=== PATIENT | male | born 1945 | race Hispanic/Latino ===

== ENCOUNTER 2017-07-05 18:47 | Emergency (ER) | payer MEDICARE, OTHER ==
[2017-07-05] MEDS ORDERED: Acetaminophen 650 MG/20.3 ML UDCUP ONE (20:55)
--- NOTE | 2017-07-05 21:50 | CT ---
CT BRAIN NONCONTRAST: 07/05/17 HISTORY: 72-year-old male status post acute head trauma from fall. FINDINGS: There is no midline shift or any other mass effect. There is no evidence of acute intracranial hemo rrhage, large cortical infarct, obstructive hydrocephalus, or extraaxial fluid collection. The calv arium is intact. IMPRESSION: No acute intracranial findings. sruthi [] POS: [facility]
--- NOTE | 2017-07-05 21:54 | CT ---
CT MAXILLOFACIAL NONCONTRAST: 07/05/17 HISTORY: 72-year-old male status post acute facial trauma due to fall. FINDINGS: There is soft tissue swelling of the lips, right side greater than left. No fracture identified invo lving the mandible, maxilla, or any of the other facial bones. No dislocation of the TMJs. The paran phoebe sinuses are clear. No intraorbital gas, hematoma or edema. IMPRESSION: 1. No fracture. 2. Acute, traumatic, soft tissue contusion of the lips. POS: [facility]
[2017-07-05] MEDS ORDERED: Adacel (T-DAP) 0.5 ML VIAL ONE (22:04)
[2017-07-05] MEDS ORDERED: Bacitracin Zinc 1 Packet ONE (22:46)
== END 2017-07-05 22:47 | disposition home or self-care (01) ==
LOC: ERS 18:47
DX: S01.512A Laceration without foreign body of oral cavity, initial encounter (principal); S80.211A Abrasion, right knee, initial encounter; S00.81XA Abrasion of other part of head, initial encounter; R41.3 Other amnesia; E11.9 Type 2 diabetes mellitus without complications; Z23 Encounter for immunization; Z87.891 Personal history of nicotine dependence; F32.9 Major depressive disorder, single episode, unspecified; W01.0XXA Fall on same level from slipping, tripping and stumbling without subsequent striking against object, initial encounter; Y93.02 Activity, running
CPT/HCPCS: 70450; 70486; 90471; 90715

== ENCOUNTER 2017-10-26 17:23 | Emergency (ER) | payer MEDICARE, OTHER ==
[2017-10-26 18:07] LABS: #Eosinphils 0.3 thou/uL (0.0-0.7); #Lymphocytes 1.6 thou/uL (1.20-3.40); #Monocytes 0.6 thou/uL (0.11-0.59); #Neutrophils 3.6 thou/uL (1.40-6.50); %Basophils 0.7 % (0.0-1.0); %Eosinophils 4.2 % (0.0-10.0); %Lymphocytes 25.9 % (21.0-51.0); %Monocytes 10.1 % (0.0-10.0); %Neutrophils 59.2 % (42.0-75.0); Hemoglobin 13.5 g/dL (14.0-18.0); Mean Corpuscular HGB CONC 34.6 g/dL (32.0-36.0); Mean Corpuscular Hemoglobin 30.8 pg (27.0-31.0); Mean Corpuscular Volume 89.3 fl (80.0-94.0); Platelet Count 169 thou/uL (130-400); RBC Distribution Width 11.2 % (11.5-14.5); Red Blood Cell (RBC) Count 4.39 mill/uL (4.70-6.10); White Blood Cell (WBC) Count 6.1 thou/uL (4.8-10.8)
[2017-10-26 18:12] LABS: PTT 28.6 SEC (22.9-36.1)
[2017-10-26 18:22] LABS: CKMB 1.5 ng/mL (0-6.6); Troponin I Less than 0.010 ng/mL (< 0.028)
[2017-10-26 18:25] LABS: ALT (SGPT) 23 U/L (8-55); AST (SGOT) 21 U/L (5-34); Albumin 3.9 g/dL (3.4-4.8); Alkaline Phosphatase 64 U/L (40-150); Anion Gap 19 mmol/L (10-20); BUN (Urea Nitrogen) 11 mg/dL (8.4-25.7); Bilirubin, Total 0.5 mg/dL (0.2-1.2); CK (CPK) 97 U/L (30-200); Calc. Creatinine Clearance 0 mL/min (70-130); Calcium 9.3 mg/dL (7.8-10.44); Carbon Dioxide 19 mmol/L (23-31); Chloride 96 mmol/L (98-107); Estimated GFR-MDRD Greater than 90; Globulin 2.6 g/dL (2.4-3.5); Glucose 97 mg/dL (83-110); Potassium 4.8 mmol/L (3.5-5.1); Protein, Total 6.5 g/dL (5.8-8.1); Sodium 129 mmol/L (136-145)
== END 2017-10-26 19:05 | disposition home or self-care (01) ==
LOC: SCSER 17:23
DX: E87.1 Hypo-osmolality and hyponatremia (principal); E86.0 Dehydration; R21 Rash and other nonspecific skin eruption; E11.9 Type 2 diabetes mellitus without complications; F32.9 Major depressive disorder, single episode, unspecified; Z87.891 Personal history of nicotine dependence; Z79.02 Long term (current) use of antithrombotics/antiplatelets; Z79.899 Other long term (current) drug therapy; Z79.84 Long term (current) use of oral hypoglycemic drugs
CPT/HCPCS: 80053; 82550; 82553; 84484; 85025; 85610; 85730; 93005; 94760; 96360

== ENCOUNTER 2017-11-07 07:30 | Outpatient (CLI) | payer MEDICARE, OTHER ==
--- NOTE | 2017-11-07 09:09 | CT ---
CONTRAST ENHANCED CT CHEST: DATE: 11/07/17. COMPARISON: Comparison is made to previous exam from 10/22/17. FINDINGS: Contrast-enhanced CT of the chest is obtained. The mediastinum is unremarkable. The patient has had a sternotomy with coronary artery bypass graft changes. Calcifications of the coronary artery are seen. No evidence of mediastinal abnormality is seen. Adrenal glands unremarkable. Visualized portions of the liver and spleen are unremarkable. The pancreas is unremarkable. Some diffuse interstitial changes seen in both lungs. Findings compatible with some chronic fibrotic changes. No other significant evidence of lung parenchymal lesion seen. IMPRESSION: 1. Some chronic fibrotic changes seen in the lungs. 2. No definite evidence of mediastinal abnormality seen. POS: [facility]
[2017-11-07] MEDS ORDERED: Iopamidol 370 76% 100 ML VIAL ONE (17:03)
== END 2017-11-07 07:31 | disposition home or self-care (01) ==
LOC: CT 07:30
PROVIDERS: ATTEND Family Medicine
DX: R91.8 Other nonspecific abnormal finding of lung field (principal)
CPT/HCPCS: 71260

== ENCOUNTER 2017-12-11 08:38 | Outpatient (CLI) | payer MEDICARE, OTHER ==
--- NOTE | 2017-12-11 15:56 | NM ---
NUCLEAR MEDICINE BRAIN IMAGING: INDICATIONS: Parkinson disease. FINDINGS: There is decreased uptake within the lentiform nuclei bilaterally, at the posterior aspect. IMPRESSION: Abnormal nuclear medicine brain perfusion imaging with decreased uptake at the posterior aspect of ea ch lentiform nucleus. POS: [facility]
== END 2017-12-11 08:39 | disposition home or self-care (01) ==
LOC: NM 08:38
PROVIDERS: ATTEND Psychiatry & Neurology Neurology
DX: G20 Parkinson's disease (principal); R94.02 Abnormal brain scan
CPT/HCPCS: 78607; A9584

== ENCOUNTER 2018-10-06 16:43 | Emergency (ER) | payer MEDICARE, OTHER ==
[2018-10-06] MEDS ORDERED: HYDROcodone/Acetaminophen 5/325 mg Tablet ONE (17:51)
--- NOTE | 2018-10-06 17:52 | RAD ---
RADIOGRAPH RIGHT SHOULDER THREE VIEWS: HISTORY: A 73-year-old male with nontraumatic right shoulder pain. FINDINGS: No fracture or dislocation. Mild to moderate DJD at the AC joint and glenohumeral joint. Tiny soft tissue calcification close to the greater tuberosity on one of the views. IMPRESSION: 1. No fracture. 2. Mild to moderate osteoarthrosis. 3. 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 POS: [facility]
== END 2018-10-06 17:54 | disposition home or self-care (01) ==
LOC: SCSER 16:43
DX: S46.911A Strain of unspecified muscle, fascia and tendon at shoulder and upper arm level, right arm, initial encounter (principal); E11.9 Type 2 diabetes mellitus without complications; F32.9 Major depressive disorder, single episode, unspecified; Z87.891 Personal history of nicotine dependence; Y04.0XXA Assault by unarmed brawl or fight, initial encounter; Y93.71 Activity, boxing

== ENCOUNTER 2018-10-17 09:07 | Outpatient (CLI) | payer MEDICARE, OTHER ==
--- NOTE | 2018-10-17 10:29 | RAD ---
TWO VIEW CHEST: COMPARISON: 07/27/2011. INDICATION: Pneumonitis. FINDINGS: Thee is interstitial prominence of each lung. Postoperative findings of the chest are again seen. T here is no lobar consolidation, effusion, or pneumothorax. Patchy bibasilar densities may relate to fibrosis and/or atelectasis/scar. The chest is otherwise similar appearing. IMPRESSION: 1. No focal consolidation. 2. Bibasilar interstitial prominence. 3. Incidental note of air-filled mildly distended bowel, incompletely evaluated. Correlate clinical ly. If there are symptoms of abdominal pain or other acute findings, recommend dedicated imaging fol low for further evaluation. POS: [facility]
== END 2018-10-17 09:08 | disposition home or self-care (01) ==
LOC: BICRAD 09:07
PROVIDERS: ATTEND Family Medicine
DX: J18.9 Pneumonia, unspecified organism (principal)
CPT/HCPCS: 71046

== ENCOUNTER 2019-04-15 11:53 | Emergency (ER) | payer MEDICARE, OTHER ==
--- NOTE | 2019-04-15 12:27 | CT ---
Head CT without contrast 04/15/2019: COMPARISON: 07/05/2017 HISTORY: Trauma TECHNIQUE: Axial CT imaging at 5 mm intervals from vertex through skull base without contrast FINDINGS: The imaged paranasal sinuses and mastoid air cells are well aerated. There is no displaced calvarial fracture. There is atherosclerotic calcification of the cavernous carotid arteries and the distal vertebral arteries. Mild periventricular hypodensity noted suggesting small vessel disease. No intracranial hemorrhage, m idline shift, mass effect, or ventricular enlargement. IMPRESSION: No displaced fracture or intracranial hemorrhage.
[2019-04-15] MEDS ORDERED: Acetaminophen 500 MG TAB ONE (12:42)
== END 2019-04-15 13:44 | disposition home or self-care (01) ==
LOC: ERS 11:53
DX: S00.03XA Contusion of scalp, initial encounter (principal); E11.9 Type 2 diabetes mellitus without complications; F32.9 Major depressive disorder, single episode, unspecified; Z79.899 Other long term (current) drug therapy; Z79.84 Long term (current) use of oral hypoglycemic drugs; W18.09XA Striking against other object with subsequent fall, initial encounter
CPT/HCPCS: 70450

== ENCOUNTER 2019-04-16 12:12 | Outpatient (CLI) | payer MEDICARE, OTHER ==
[2019-04-16 14:59] LABS: #Eosinphils 0.3 thou/uL (0.0-0.7); #Lymphocytes 1.6 thou/uL (1.20-3.40); #Monocytes 0.5 thou/uL (0.11-0.59); #Neutrophils 5.5 thou/uL (1.40-6.50); %Basophils 0.2 % (0.0-1.0); %Eosinophils 3.7 % (0.0-10.0); %Lymphocytes 20.5 % (21.0-51.0); %Monocytes 6.5 % (0.0-10.0); %Neutrophils 69.1 % (42.0-75.0); Hemoglobin 14.5 g/dL (14.0-18.0); Mean Corpuscular HGB CONC 34.6 g/dL (32.0-36.0); Mean Corpuscular Hemoglobin 32.4 pg (27.0-31.0); Mean Corpuscular Volume 93.8 fL (78.0-98.0); Mean Platelet Volume 7.1 fL (7.4-10.4); Platelet Count 277 thou/uL (130-400); RBC Distribution Width 12.2 % (11.5-14.5); Red Blood Cell (RBC) Count 4.46 mill/uL (4.70-6.10); White Blood Cell (WBC) Count 7.9 thou/uL (4.8-10.8)
[2019-04-16 15:04] LABS: Prothrombin Time 13.2 SEC (12.0-14.7)
[2019-04-16 15:18] LABS: Anion Gap 18 mmol/L (10-20); BUN (Urea Nitrogen) 8 mg/dL (8.4-25.7); Calc. Creatinine Clearance 0 mL/min (70-130); Calcium 9.8 mg/dL (7.8-10.44); Carbon Dioxide 22 mmol/L (23-31); Chloride 94 mmol/L (98-107); Estimated GFR-MDRD Greater than 90; Glucose 119 mg/dL (83-110); Sodium 130 mmol/L (136-145)
[2019-04-16 15:25] LABS: Bacteria/HPF None Seen HPF (None Seen); Bilirubin Negative (Negative); Blood, Urine Negative (Negative); Calcium Oxalate Crystals 2+ HPF (None Seen); Clarity Clear (Clear); Glucose, Urine (Dipstick) 300 mg/dL (Negative); Leukocyte Negative Leu/uL (Negative); Mucous/LPF 1+ LPF (<2+); Nitrite Negative (Negative); Protein, Urine (Dipstick) 20 mg/dL (Neg-Trace); RBC/HPF 0-3 HPF (0-3); Squamous Epithelial None Seen HPF (0-3); Urobilinogen Normal mg/dL (Less than 2); WBC/HPF 0-3 HPF (0-3)
== END 2019-04-16 12:13 | disposition home or self-care (01) ==
LOC: LABBT 12:12
PROVIDERS: ATTEND Orthopaedic Surgery
DX: Z01.818 Encounter for other preprocedural examination (principal); M17.11 Unilateral primary osteoarthritis, right knee
CPT/HCPCS: 80048; 81001; 85025; 85610; 87081; 93005; 93010

== ENCOUNTER 2019-04-27 06:49 | Inpatient (IN) | payer MEDICARE, OTHER ==
[2019-04-16 13:12] VITALS: BMI 24.4
--- NOTE | 2019-04-23 08:53 | HP ---
HISTORY OF PRESENT ILLNESS: The patient is a 73-year-old male with a long history of progressive degenerative arthritis of both knees, right symptomatic more than left, unresponsive to conservative treatment including rest, restriction of activities, and lifestyle adjustments, and previous cortisone injections. The pain is now interfering with day-to-day activities including walking, getting dressed, and sleeping. PAST MEDICAL HISTORY: The patient has had previous open heart surgery and is on Plavix. He also has Parkinson disease and type 2 diabetes. PAST SURGICAL HISTORY: He has had a hemicolectomy for diverticular bleeding. CURRENT MEDICATIONS: Include; 1. Metformin. 2. Mirabegron. 3. Multivitamins. 4. Dicyclomine. 5. Plavix. 6. Lipitor. 7. Cyproheptadine. 8. Sildenafil. 9. Tylenol Arthritis. 10. Amantadine. 11. Aricept. 12. Carbidopa. He is to stop Plavix 1 week prior to anticipated surgery. ALLERGIES: HE HAS NO KNOWN ALLERGIES. FAMILY HISTORY: Otherwise, unremarkable. SOCIAL HISTORY: Otherwise, unremarkable. REVIEW OF SYSTEMS: Otherwise, unremarkable. PHYSICAL EXAMINATION: GENERAL: Reveals a healthy male. HEENT: Unremarkable. NECK: Supple. CHEST: Clear. HEART: Regular rate and rhythm. ABDOMEN: Soft and nontender. RECTAL AND GENITAL: Deferred. EXTREMITIES: Pertinent findings related to the right knee, there is puffiness with definite effusion. There is a palpable Rawls cyst. There is mild varus deformity. There is tenderness and crepitus over the medial joint line. Range of motion is 2 to 120 degrees. There is a trace valgus laxity at 30 degrees of flexion. Neurovascular exam is intact. Pulses are 1+. DIAGNOSTIC STUDIES: X-rays of the right knee reveal [id number] collapse medially with progression from previous x-rays. There are similar findings on the left knee. IMPRESSION: 1. Degenerative arthritis of both knees, right symptomatic more than left. 2. Atherosclerotic cardiovascular disease. 3. Type 2 diabetes. 4. Parkinson disease. PLAN: Right total knee replacement. The nature of the surgery, length of recovery, and potential complications such as infection, loss of motion, incomplete relief, delayed wound healing, neurovascular injury, thromboembolic phenomena, possible transfusion, and need for revision have been discussed in detail. Job ID: [id number]
[2019-04-27] MEDS ORDERED: ceFAZolin Sodium (SDC) 2 GM/100 ML BAG ONE (07:49)
[2019-04-27] MEDS ORDERED: Sodium Chloride 0.9% 100 ML ONE (07:49)
[2019-04-27] MEDS ORDERED: Tranexamic Acid 1,000 MG/10 ML VIAL ONE ×2 (07:49→11:27)
[2019-04-27] MEDS ORDERED: Fentanyl 100 MCG/2 ML VIAL ONE ×4 (08:01→12:17)
[2019-04-27] MEDS ORDERED: Midazolam HCl 2 mg/2 ml Vial ONE (08:01)
[2019-04-27] MEDS ORDERED: Promethazine HCl 25 MG/ML VIAL IM PRN ×2 (08:29→10:05)
[2019-04-27] MEDS ORDERED: Ropivacaine HCl/PF 250 ML in Premix Bag 1 BAG NERVE BLCK SCH (08:29)
[2019-04-27] MEDS ORDERED: traMADol HCl 50 MG TAB PO PRN ×2 (08:29)
[2019-04-27] MEDS ORDERED: Ondansetron PF 4 MG/2 ML Vial IVP PRN ×2 (08:29→13:59)
[2019-04-27] MEDS ORDERED: HYDROcodone/Acetaminophen 10/325 mg Tablet PO PRN ×4 (08:29→13:59)
[2019-04-27] MEDS ORDERED: Zolpidem Tartrate 5 MG TAB PO PRN ×2 (08:29→13:59)
[2019-04-27] MEDS ORDERED: Fentanyl 100 MCG/2 ML VIAL IV PRN (08:30)
[2019-04-27] MEDS ORDERED: Promethazine HCl 25 MG/ML VIAL SLOW IVP PRN (10:05)
[2019-04-27] MEDS ORDERED: Ondansetron HCl/PF 4 MG/2 ML Vial IVP PRN (10:05)
[2019-04-27] MEDS ORDERED: Bupivacaine/Epinephrine 0.25% 30 ML VIAL ONE (10:16)
[2019-04-27] MEDS ORDERED: Tranexamic Acid 1,000 MG in Sodium Chloride 0.9% 100 ML IVPB SCH ×2 (11:30→13:59)
[2019-04-27] MEDS ORDERED: Ondansetron PF 4 MG/2 ML Vial ONE ×2 (11:35→13:35)
[2019-04-27] MEDS ORDERED: PROPOFOL 200 MG/20 ML VIAL ONE (11:35)
[2019-04-27] MEDS ORDERED: Lidocaine 1% PF 5 ML VIAL ONE (11:35)
[2019-04-27] MEDS ORDERED: Ropivacaine 0.2% HCl/PF (40 MG/20 ML VIAL) ONE (11:35)
[2019-04-27] MEDS ORDERED: Ropivacaine 0.5% HCl/PF (150 MG/30 ML VIAL) ONE (11:35)
--- NOTE | 2019-04-27 12:15 | RAD ---
Right knee 2 views: HISTORY: Recent total knee postoperative change. FINDINGS: Recent total knee arthroplasty. No dislocation or periprostatic fracture. IMPRESSION: Unremarkable recent total knee arthroplasty.
[2019-04-27] MEDS ORDERED: Labetalol HCl 100 MG/20 ML VIAL ONE (12:17)
[2019-04-27] MEDS ORDERED: Ketorolac Tromethamine 30 MG/ML VIAL ONE (12:17)
[2019-04-27] MEDS ORDERED: Promethazine HCl 25 MG/ML VIAL ONE (13:35)
[2019-04-27] MEDS ORDERED: Acetaminophen 325 MG TAB PO PRN (13:59)
[2019-04-27] MEDS ORDERED: diphenhydrAMINE 25 MG CAP PO PRN (13:59)
[2019-04-27] MEDS ORDERED: (Triamcinolone Acetonide [Triamcinolone Acetonide 0.1% Lotion] TOP PRN (13:59)
[2019-04-27] MEDS ORDERED: Fentanyl 100 MCG/2 ML VIAL SLOW IVP PRN ×2 (13:59)
[2019-04-27] MEDS ORDERED: Promethazine HCl 25 MG/ML VIAL IVPB PRN (13:59)
--- NOTE | 2019-04-27 16:14 | OP ---
DATE OF PROCEDURE: 04/27/2019 MACHINE I CUTTER: Daniela Morrison PA-C ANESTHESIA: General plus adductor canal and sciatic nerve blocks. PREOPERATIVE DIAGNOSIS: Degenerative arthritis, right knee. POSTOPERATIVE DIAGNOSIS: Degenerative arthritis, right knee. PROCEDURE PERFORMED: Right total knee replacement with computer-assisted navigation with cemented [place] Triathlon components (#3 femoral component, #3 primary tibial base plate with 13 mm CS plastic insert, and A29 all plastic patellar component). DESCRIPTION OF PROCEDURE: After satisfactory anesthesia was induced in supine position, sequential compression device was placed on the nonoperative leg throughout the procedure. The right leg was then prepped and draped in routine sterile fashion. The leg was elevated and exsanguinated with an Esmarch bandage, and the tourniquet inflated to 300 mmHg. A gently curved medial parapatellar incision was made, carried down through the subcutaneous tissues and bleeding points were controlled with Bovie cautery. Medial parapatellar arthrotomy was performed. The pelvis was cleared laterally and portion of the fat-pad were excised for exposure. There was marked degenerative arthritis of the knee, especially medially with large areas of exposed bone. Meniscal remnants and osteophytes were removed. Using the [place] Right pinless navigation system and the appropriate guides, the distal femoral and proximal tibial articular surfaces were excised with an oscillating saw to accept the trial components. It was felt that #3 femoral component and #3 tibial base plate with 13 mm CS plastic insert gave appropriate size, fit, stability, and correction of the preoperative deformity. The patellar articular surface was excised to accept an all plastic A29 patellar component. There was good range of motion and good patellar tracking. The trial components were removed. The knee was copiously irrigated with pulsatile lavage, and the bony surfaces were thoroughly cleaned and dried. The permanent components were then cemented in a single stage using one package of cement premixed with 1 g of tobramycin powder. Excess cement was removed. There was again good fit and stability of the components. The knee was copiously irrigated. The skin was then infiltrated with 30 mL of 0.25% Marcaine with epinephrine. The medial retinaculum and quadriceps mechanism was closed with interrupted #2 Vicryl and a running #2 Quill. Subcutaneous tissues were closed with running 0 Quill suture and the skin closed with 3-0 subcuticular Monoderm and SurgiSeal skin adhesive. Sterile bulky compressive dressing was applied. The tourniquet deflated after 70 minutes. The foot promptly pinked up. A sequential compression device was applied to his operated leg and he was awakened, taken to recovery in stable condition. There were no apparent intraoperative complications. ESTIMATED BLOOD LOSS: Less than 100 mL. Job ID: [id number]
[2019-04-27] MEDS: Ketorolac Tromethamine 30 MG/ML VIAL IVP SCH ×3 (17:25→17:37)
[2019-04-27] MEDS: CEFAZOLIN 2 GM, IV Admixture Fee-Chemo 1 UNITS in Sodium Chloride 0.9% 100 ML IVPB SCH ×2 (17:31→21:00)
[2019-04-27] MEDS ORDERED: hydrALAZINE 20 MG/ML VIAL SLOW IVP PRN (17:33)
[2019-04-27] MEDS: Sodium Chloride 0.9% 1,000 ML IV SCH ×2 (17:38→23:21)
--- NOTE | 2019-04-27 18:06 | CON ---
DATE OF CONSULTATION: 04/27/2019 PRIMARY CARE PROVIDER: Neri Cheung MD CHIEF COMPLAINT: Management of medical comorbidities. HISTORY OF PRESENT ILLNESS: Mr. Hayes is a pleasant 73-year-old gentleman, who was seen at [facility] on April 27, 2019. Mr. Hayes had right knee replacement earlier today. Hospitalist Service has been consulted for management of medical comorbidities. Mr. Hayes denies any chest pain or shortness of breath. He reports mild discomfort in his right lower extremity. He denies any fevers or chills. He denies any nausea or vomiting. He denies any shortness of breath. REVIEW OF SYSTEMS: All systems were reviewed and were found to be negative except for the pertinent positives and negatives described above. PAST MEDICAL HISTORY: Coronary artery disease, Parkinson disease, diabetes mellitus type 2, and diverticulitis. PAST SURGICAL HISTORY: Colectomy for diverticular disease. FAMILY HISTORY: Myocardial infarction in his father. SOCIAL HISTORY: No history of tobacco use, alcohol use, or recreational drug use. ALLERGIES: NO KNOWN DRUG ALLERGIES. HOME MEDICATIONS: 1. Acetaminophen 1000 mg every 6 hours as needed. 2. Dramamine 50 mg every 6 hours as needed. 3. Amantadine 100 mg 2 times a day. 4. Lipitor 20 mg at bedtime. 5. Sinemet 25/100 mg 2 times a day. 6. Plavix 75 mg daily. 7. Desmopressin 0.1 mg at bedtime. 8. Bentyl 10 mg 2 times a day. 9. Aricept 10 mg at bedtime. 10. Metformin 1000 mg 2 times a day. 11. Mirabegron 50 mg daily. 12. MiraLAX 17 g daily as needed. 13. Sildenafil 100 mg daily as needed. 14. Triamcinolone lotion as needed. PHYSICAL EXAMINATION: GENERAL: On examination, Mr. Hayes is awake and alert, not in acute distress. VITAL SIGNS: Blood pressure is elevated at 179/92. EYES: No scleral icterus. No conjunctival pallor. ENT: Moist mucosal membranes. No oropharyngeal erythema or exudates. NECK: Supple and nontender. Trachea is midline. RESPIRATORY: Accessory muscles of breathing are not active. Chest wall movements are symmetric bilaterally. Lungs are clear to auscultation without wheeze, rhonchi, or crepitations. CARDIOVASCULAR: S1 and S2 are heard, regular. Peripheral pulses are palpable. No carotid bruit. No pericardial rub. ABDOMEN: Soft and nontender. Bowel sounds heard. NEUROLOGIC: Cranial nerves 2 through 12 are intact. MUSCULOSKELETAL: Status post right knee surgery. SKIN: No rashes or subcutaneous nodules. LYMPHATIC: No cervical lymphadenopathy. PSYCHIATRIC: Normal mood and normal affect. The patient is oriented to person, place, and time. LABORATORY DATA: Mr. Hayes's labs and investigations were reviewed. On April 16, he had normal white count, normal hemoglobin, normal platelet count, INR 1.0, normal potassium, decreased sodium of 130, decreased carbon dioxide of 22, normal creatinine, urinalysis that was positive for trace amount of ketones. ASSESSMENT AND PLAN: Mr. Hayes is a pleasant 73-year-old gentleman, who was seen at [facility] on April 27, 2019. His problem list includes: 1. Hypertension: He currently has elevated blood pressure. We will add p.r.n. hydralazine for blood pressure spikes. 2. Dyslipidemia: Continue atorvastatin. 3. Diabetes mellitus, type 2: Start Accu-Cheks and insulin sliding scale. 4. Parkinson disease: Continue Sinemet. 5. Hyponatremia: Etiology is unclear, appears to be chronic. The patient is currently on desmopressin. He is unable to tell me the indication for desmopressin. He will be advised to follow up with his primary care provider regarding this. Many thanks for allowing me to participate in your patient's care. Please feel free to contact me with any questions or concerns. LEVEL OF RISK: Low. LEVEL OF COMPLEXITY: Low. Job ID: [id number]
[2019-04-27] MEDS: Carbidopa/Levodopa 25-100 mg Tablet PO SCH (18:11)
[2019-04-27] MEDS ORDERED: Vancomycin HCl 1 GM in Premix Bag 1 BAG IVPB SCH (20:00)
[2019-04-27] MEDS: Amantadine HCl 100 mg Capsule PO SCH (20:51)
[2019-04-27] MEDS: Senokot S 8.6-50 MG TAB PO SCH (20:51)
[2019-04-27] MEDS: metFORMIN 500 MG TAB PO SCH (20:51)
[2019-04-27] MEDS: Atorvastatin Calcium 20 MG TAB PO SCH (20:52)
[2019-04-27] MEDS: Aspirin 81 mg Enteric Coated Tablet PO SCH (20:52)
[2019-04-27] MEDS: Donepezil HCl 5 MG TAB PO SCH (20:52)
[2019-04-27] MEDS: Dicyclomine 10 MG CAP PO SCH (20:52)
[2019-04-27] MEDS ORDERED: DESMOPRESSIN ACETATE 0.1 MG PO SCH (21:00)
[2019-04-28] MEDS: Ketorolac Tromethamine 30 MG/ML VIAL IVP SCH ×6 (01:00→18:23)
[2019-04-28 04:43] LABS: Hemoglobin 12.7 g/dL (14.0-18.0); Mean Corpuscular HGB CONC 33.2 g/dL (32.0-36.0); Mean Corpuscular Hemoglobin 31.7 pg (27.0-31.0); Mean Corpuscular Volume 95.4 fL (78.0-98.0); Mean Platelet Volume 7.1 fL (7.4-10.4); Platelet Count 252 thou/uL (130-400); RBC Distribution Width 12.4 % (11.5-14.5); Red Blood Cell (RBC) Count 4.02 mill/uL (4.70-6.10); White Blood Cell (WBC) Count 10.2 thou/uL (4.8-10.8)
[2019-04-28] MEDS ORDERED: HumaLOG 300 UNITS/3 ML VIAL SC PRN (08:24)
[2019-04-28] MEDS ORDERED: Dextrose 5% in Water 1,000 ML IV PRN (08:24)
[2019-04-28] MEDS ORDERED: Dextrose 50% Abboject 50 ML SYRINGE SLOW IVP PRN (08:24)
[2019-04-28] MEDS: Carbidopa/Levodopa 25-100 mg Tablet PO SCH ×3 (08:40→18:25)
[2019-04-28] MEDS: Aspirin 81 mg Enteric Coated Tablet PO SCH ×2 (08:40→21:46)
[2019-04-28] MEDS: Amantadine HCl 100 mg Capsule PO SCH ×2 (08:40→21:46)
[2019-04-28] MEDS: Multivitamin W/ Minerals 1 TAB PO SCH (08:40)
[2019-04-28] MEDS: Senokot S 8.6-50 MG TAB PO SCH ×2 (08:40→21:46)
[2019-04-28] MEDS: metFORMIN 500 MG TAB PO SCH ×2 (08:41→21:45)
[2019-04-28] MEDS: Sodium Chloride 0.9% 1,000 ML IV SCH ×2 (12:37→20:00)
[2019-04-28] MEDS: Dicyclomine 10 MG CAP PO SCH ×2 (12:49→21:46)
--- NOTE | 2019-04-28 15:14 | PDOC.HOSPP ---
- Subjective Subjective: Pt seen for followup re: hypertension. Feels well, no complaints. - Objective Vital Signs & Weight: Vital Signs (12 hours) Temp Pulse Resp BP Pulse Ox 04/28/19 12:53 88 16 135/78 98 04/28/19 07:39 98.3 F 86 18 136/77 98 04/28/19 03:35 98.4 F 85 16 136/83 97 Weight Admit Weight 138 lb Weight 138 lb I&O: 04/27/19 04/28/19 04/29/19 06:59 06:59 06:59 Intake Total 801.0 1800 Output Total 0 800 Balance 801.0 1000 Result Diagrams: 04/28/19 04:00 Additional Labs: Accuchecks 04/28/19 04/27/19 14:39 07:45 POC Glucose 149 H 128 H Labs and MARs reviewed by me ROS - Review of Systems All systems: All other ROS were reviewed and found negative. Cardiovascular: denies: chest pain, palpitations, orthopnea, paroxysmal noc. dyspnea, edema, light headedness Gastrointestinal: denies: nausea, vomitting, abdominal pain, diarrhea, constipation, melena, hematochezia - Medication Medications: Active Medications Generic Name Dose Route Start Last Admin Trade Name Freq PRN Reason Stop Dose Admin Amantadine HCl 100 mg 04/27/19 21:00 04/28/19 08:40 Symmetrel PO 100 mg BID ERMIAS Administration Aspirin 81 mg 04/27/19 21:00 04/28/19 08:40 Ecotrin PO 81 mg BID ERMIAS Administration Atorvastatin Calcium 20 mg 04/27/19 21:00 04/27/19 20:52 Lipitor PO 20 mg HS ERMIAS Administration Carbidopa/Levodopa 1 tab 04/27/19 21:00 04/28/19 08:41 Sinemet 25-100 PO 1 tab BID ERMIAS Administration Dicyclomine HCl 10 mg 04/27/19 21:00 04/28/19 12:49 Bentyl PO 10 mg BID ERMIAS Administration Donepezil HCl 10 mg 04/27/19 21:00 04/27/19 20:52 Aricept PO 10 mg HS ERMIAS Administration Ropivacaine 250 ml/ Device 250 mls @ 0 mls/hr 04/27/19 08:29 04/28/19 12:49 NERVE BLCK 250 mls INF ERMIAS Administration As Directed Sodium Chloride 1,000 mls @ 100 mls/hr 04/27/19 13:59 04/28/19 12:37 Normal Saline 0.9% IV Not Given .Q10H ERMIAS Iron/Minerals/Multivitamins 1 tab 04/28/19 09:00 04/28/19 08:40 Theragran M PO 1 tab DAILY ERMIAS Administration Ketorolac Tromethamine 15 mg 04/27/19 12:00 04/28/19 12:53 Toradol IVP 04/29/19 06:01 15 mg Q6HR ERMIAS Administration Metformin HCl 1,000 mg 04/27/19 21:00 04/28/19 08:41 Glucophage PO 1,000 mg BID ERMIAS Administration Mirabegron 50 mg 04/28/19 09:00 04/28/19 12:49 Myrbetriq Er PO 50 mg DAILY ERMIAS Administration Senna/Docusate Sodium 2 tab 04/27/19 21:00 04/28/19 08:40 Senokot S PO 2 tab BID ERMIAS Administration Sodium Chloride 10 ml 04/27/19 09:00 04/28/19 12:51 Flush - Normal Saline IVF 10 ml Q12HR ERMIAS Administration - Exam NAD Eye: anicteric sclera ENT: moist mucosa Neck: supple Heart: RRR Respiratory: CTAB Gastrointestinal: soft Skin: normal turgor Psychiatric: normal affect Hosp A/P (1) HTN (hypertension) Code(s): I10 - ESSENTIAL (PRIMARY) HYPERTENSION Status: Chronic (2) Dyslipidemia Code(s): E78.5 - HYPERLIPIDEMIA, UNSPECIFIED Status: Chronic (3) DM2 (diabetes mellitus, type 2) Status: Chronic - Plan PT/OT, incentive spirometry, out of bed/ambulate Continue lipitor. BP controlled. s/p right knee surgery. Continue accuchecks, insulin sliding scale. DVT prophylaxis and pain management per orthopedic surgery.
[2019-04-28] MEDS: traMADol HCl 50 MG TAB PO PRN (18:25)
[2019-04-28] MEDS: Atorvastatin Calcium 20 MG TAB PO SCH (21:46)
[2019-04-28] MEDS: Donepezil HCl 5 MG TAB PO SCH (21:46)
[2019-04-29] MEDS: Ketorolac Tromethamine 30 MG/ML VIAL IVP SCH ×2 (00:52→06:41)
[2019-04-29] MEDS: Sodium Chloride 0.9% 1,000 ML IV SCH (05:05)
[2019-04-29] MEDS: Senokot S 8.6-50 MG TAB PO SCH (08:22)
[2019-04-29] MEDS: Carbidopa/Levodopa 25-100 mg Tablet PO SCH (08:22)
[2019-04-29] MEDS: Amantadine HCl 100 mg Capsule PO SCH (08:22)
[2019-04-29] MEDS: Multivitamin W/ Minerals 1 TAB PO SCH (08:22)
[2019-04-29] MEDS: Aspirin 81 mg Enteric Coated Tablet PO SCH (08:22)
[2019-04-29] MEDS: metFORMIN 500 MG TAB PO SCH (08:22)
[2019-04-29] MEDS: Dicyclomine 10 MG CAP PO SCH (08:23)
[2019-04-29 08:53] VITALS: BP 129/77; TEMP 98.3
[2019-04-29] MEDS: traMADol HCl 50 MG TAB PO PRN (12:15)
--- NOTE | 2019-04-29 15:29 | DIS ---
DATE OF ADMISSION: 04/27/2019 DATE OF DISCHARGE: 04/29/2019 CONSULTANTS: Include [facility] and [facility]. PREOPERATIVE DIAGNOSIS: Degenerative arthritis, right knee. POSTOPERATIVE DIAGNOSIS: Degenerative arthritis, right knee. PROCEDURE PERFORMED: Right total knee replacement with computer-assisted navigation with cemented [place] triathlon components. BRIEF HOSPITAL COURSE: This is a 73-year-old male, who was indicated for the above-mentioned procedure. Postoperatively, he was admitted to [place] [address] surgical [facility], where his pain was controlled by [facility], and he worked with physical and occupational therapists. He also received postoperative antibiotics. He did well following surgery with his postoperative course and on postoperative day #2, he was discharged home with home health physical therapy. No complications were incurred during his hospital stay. DISCHARGE DISPOSITION: Home. DISCHARGE CONDITION: Stable. DISCHARGE MEDICATIONS: See MAR. DISCHARGE INSTRUCTIONS: The patient will follow up with Dr. Mcgarry as scheduled. He will also see home health physical therapy as scheduled. He will keep his dressing clean, dry, and intact until followup. Job ID: [id number]
== END 2019-04-29 14:58 | disposition home or self-care (01) | DRG 470 ==
LOC: SDC 06:49 → SJJU 07:16
PROVIDERS: ADMIT Orthopaedic Surgery; ATTEND Orthopaedic Surgery
PROC: 0SRC0J9 Replacement of Right Knee Joint with Synthetic Substitute, Cemented, Open Approach (ICD-10-PCS; principal; 2019-04-27)
PROC: 8E0YXBZ Computer Assisted Procedure of Lower Extremity (ICD-10-PCS; 2019-04-27)
DX: M17.0 Bilateral primary osteoarthritis of knee (principal); E87.1 Hypo-osmolality and hyponatremia; E11.9 Type 2 diabetes mellitus without complications; G20 Parkinson's disease; I10 Essential (primary) hypertension; I25.10 Atherosclerotic heart disease of native coronary artery without angina pectoris; Z90.49 Acquired absence of other specified parts of digestive tract
CPT/HCPCS: 36416; 85027; C1713; C1776; J0131; J0690; J1885; J2001; J2250; J2405; J2550; J2704; J2795; J3010; J3370; J3490

== ENCOUNTER 2019-05-12 13:57 | Emergency (ER) | payer MEDICARE, OTHER ==
--- NOTE | 2019-05-12 14:49 | CT ---
CT BRAIN WITHOUT CONTRAST: HISTORY: Fall, headache. FINDINGS: Comparison is made with the exam of 04/15/2019. Changes of mild chronic small-vessel ischemic disease are again seen. The ventricular size is stable and the basilar cisterns patent. No evidence of acute infarct, hemorrhage, midline shift, or abnorm al extraaxial fluid collections are seen. The bony calvarium is intact. The visualized paranasal si nuses and mastoid air cells re well aerated. IMPRESSION: No CT evidence of acute intracranial process. POS: [facility]
[2019-05-12] MEDS ORDERED: Ondansetron ODT 4 MG TAB ONE (15:11)
[2019-05-12] MEDS ORDERED: HYDROcodone/Acetaminophen 5/325 mg Tablet ONE (15:11)
== END 2019-05-12 15:18 | disposition home or self-care (01) ==
LOC: ERS 13:57
DX: R51 Headache (principal); M25.561 Pain in right knee; E11.9 Type 2 diabetes mellitus without complications; G20 Parkinson's disease; F32.9 Major depressive disorder, single episode, unspecified; Z79.899 Other long term (current) drug therapy; Z79.84 Long term (current) use of oral hypoglycemic drugs; W19.XXXA Unspecified fall, initial encounter
CPT/HCPCS: 70450; Q0162

== ENCOUNTER 2019-07-29 12:17 | Emergency (ER) | payer MEDICARE, OTHER ==
[2019-07-29 12:44] LABS: #Basophils 0.1 thou/uL (0.0-0.2); #Eosinphils 0.3 thou/uL (0.0-0.7); #Lymphocytes 2.1 thou/uL (1.20-3.40); #Monocytes 0.6 thou/uL (0.11-0.59); #Neutrophils 5.4 thou/uL (1.40-6.50); %Basophils 1.2 % (0.0-1.0); %Eosinophils 3.2 % (0.0-10.0); %Lymphocytes 24.4 % (21.0-51.0); %Monocytes 6.6 % (0.0-10.0); %Neutrophils 64.7 % (42.0-75.0); Hemoglobin 15.2 g/dL (14.0-18.0); Mean Corpuscular HGB CONC 33.9 g/dL (32.0-36.0); Mean Corpuscular Hemoglobin 31.1 pg (27.0-31.0); Mean Corpuscular Volume 91.7 fL (78.0-98.0); Mean Platelet Volume 6.5 fL (7.4-10.4); Platelet Count 308 thou/uL (130-400); RBC Distribution Width 12.7 % (11.5-14.5); White Blood Cell (WBC) Count 8.4 thou/uL (4.8-10.8)
[2019-07-29 12:50] LABS: INR-International Normal Ratio 0.9; Prothrombin Time 12.4 SEC (12.0-14.7)
--- NOTE | 2019-07-29 13:19 | CT ---
Exam: Head CT without contrast HISTORY: Fall. Dizziness. Pain. COMPARISON: 05/12/2019 FINDINGS: Hemorrhage: No intraparenchymal hemorrhage or extra-axial hematoma. Brain parenchyma: Cortical delatorre-white matter differentiation is preserved. No mass effect or midline shift. Basilar cisterns are patent.Stable white matter hypodensities due to chronic small vessel ischemic change Ventricular system: Ventricles and sulci are patent and symmetric. Calvarium: Intact Scalp: Right frontal/supraorbital hematoma. Sinuses and mastoid air cells: Adequate aeration. IMPRESSION: 1. No intracranial posttraumatic sequelae 2. Right frontal scalp hematoma and supraorbital hematoma.
--- NOTE | 2019-07-29 13:22 | CT ---
Exam: CT cervical spine without contrast HISTORY: Trauma. Pain. Dizziness. Fall. COMPARISON: None FINDINGS: No craniocervical dissociation. Appropriate alignment of the lateral masses of C1 and C2. Intact odon toid process Appropriate alignment of the facets. Straightening of normal cervical lordosis may be due to patient position, muscle spasm or cervical co llar. Soft tissue neck structures: No mass, lymphadenopathy or hematoma. No prevertebral soft tissue swelli ng. Upper mediastinum and lung apices: Unremarkable Central spinal canal: There are varying degrees of central canal stenosis and foraminal narrowing on the basis of degenerative change. Limited evaluation due to technique. Vertebral bodies: Cervical spine vertebral body height is maintained. No fracture. IMPRESSION: 1. No fracture 2. Varying degrees of significant central canal stenosis and neural foraminal narrowing on the basis of degenerative change. Limited evaluation due to technique 3. Straightening of normal cervical lordosis. MRI if there is concern for ligamentous injury.
--- NOTE | 2019-07-29 13:23 | CT ---
FACIAL BONE CT WITHOUT CONTRAST: HISTORY: Fall. Pain. Trauma. COMPARISON: 07/05/2017. FINDINGS: Right frontal scalp hematoma. Right periorbital/supraorbital hematoma. Orbits: Bilateral ocular lenses are appropriately located. Both globes are intact. Retrobulbar fat is preserved. Symmetric attenuation the optic nerves and ocular rectus muscles. Mild mucosal disease of the paranasal sinuses. Zygomatic arches and pterygoid plates are intact. Maxilla and mandible are intact.. Coronal recommended images demonstrate patent bilateral ostiomeatal complexes. Princess bullosa involving the left superior turbinate. Intact nasal bones. No fracture. IMPRESSION: 1. Right frontal scalp hematoma and right periorbital posttraumatic soft tissue swelling/hematoma. 2. No maxillofacial or orbital fracture. Transcribed Date/Time: 07/29/2019 1:38 PM
[2019-07-29 13:26] LABS: ALT (SGPT) 13 U/L (8-55); AST (SGOT) 16 U/L (5-34); Albumin 4.4 g/dL (3.4-4.8); Alkaline Phosphatase 101 U/L (40-110); Anion Gap 15 mmol/L (10-20); BUN (Urea Nitrogen) 17 mg/dL (8.4-25.7); Bilirubin, Total 0.4 mg/dL (0.2-1.2); Calc. Creatinine Clearance 0 mL/min (70-130); Calcium 9.9 mg/dL (7.8-10.44); Carbon Dioxide 21 mmol/L (23-31); Chloride 99 mmol/L (98-107); Estimated GFR-MDRD 87; Globulin 2.9 g/dL (2.4-3.5); Glucose 124 mg/dL (83-110); Potassium 4.4 mmol/L (3.5-5.1); Protein, Total 7.3 g/dL (5.8-8.1); Sodium 131 mmol/L (136-145)
--- NOTE | 2019-07-29 14:17 | RAD ---
Exam: Chest one view HISTORY:Weakness. Pain. Fall. Comparison: 12/23/2014 FINDINGS: Cardiac silhouette:Normal cardiac silhouette. Sternotomy wires are redemonstrated Aorta: Atherosclerosis Pulmonary vessels: Normal Costophrenic angles: Clear LUNGS: No masses or consolidation. Pneumothorax: None Osseous abnormalities: None IMPRESSION: No acute cardiopulmonary process. Atherosclerosis.
--- NOTE | 2019-07-29 14:20 | RAD ---
Exam:2 views right hip HISTORY: Pain. Fall. COMPARISON: None FINDINGS: Contour of the femoral head is maintained. Joint spaces preserved. No fracture. Visualized sacrum and bony pelvis are intact. IMPRESSION: No fracture.
--- NOTE | 2019-07-29 14:22 | RAD ---
Exam: Right knee 3 views: HISTORY: Injury from a trip and fall FINDINGS: Status post total knee arthroplasty. Bony demineralization. No acute periprostatic fracture or disloc ation or other significant acute process. IMPRESSION: Unremarkable right knee. No acute process.
[2019-07-29] MEDS ORDERED: Lorazepam 2 MG/ML VIAL ONE (14:29)
[2019-07-29] MEDS ORDERED: Adacel (T-DAP) 0.5 ML SYRINGE ONE (16:34)
== END 2019-07-29 16:58 | disposition home or self-care (01) ==
LOC: ERS 12:17
DX: S00.11XA Contusion of right eyelid and periocular area, initial encounter (principal); S80.01XA Contusion of right knee, initial encounter; S60.812A Abrasion of left wrist, initial encounter; S50.812A Abrasion of left forearm, initial encounter; M54.2 Cervicalgia; E11.9 Type 2 diabetes mellitus without complications; F32.9 Major depressive disorder, single episode, unspecified; Z79.899 Other long term (current) drug therapy; W18.30XA Fall on same level, unspecified, initial encounter
CPT/HCPCS: 70450; 70486; 71045; 72125; 80053; 85025; 85610; 90471; 90715; 93005; J2060

== ENCOUNTER 2019-08-17 11:50 | Emergency (ER) | payer MEDICARE, OTHER ==
--- NOTE | 2019-08-17 12:36 | CT ---
CT Brain WO Con History: Fall. Injury. Comparison: CT brain July 29, 2019 Findings: No acute hemorrhage or infarct. No midline shift or mass effect. Ventricular size and extra -axial CSF spaces are normal. Mild atrophy. Mild expected dilatation of the ventricular systems. Calvarium is intact. Mastoids are clear. Small posterior right parietal soft tissue scalp contusion without calvarial fracture.. Impression: Small right posterior parietal scalp soft tissue contusion without acute posttraumatic in tracranial sequelae.
--- NOTE | 2019-08-17 12:43 | CT ---
CT Cervical Spine WO Con History: Trauma. Fall Comparison: CT cervical spine July 29, 2019 Findings: The occipital condyles are intact. The odontoid process is intact. Advanced degenerative disc space height loss from C4-C6 with circumferential disc osteophyte complexe s. No acute traumatic facet joint widening. Transverse processes are intact. Dense calcifications of the carotid bulbs. Multilevel osseous neural foraminal narrowing. The lung apices are clear. No prevertebral edema. Visualized posterior ribs are intact. Impression: No acute fracture or malalignment of the cervical spine.
== END 2019-08-17 12:54 | disposition home or self-care (01) ==
LOC: ERS 11:50
DX: S06.9X9A Unspecified intracranial injury with loss of consciousness of unspecified duration, initial encounter (principal); S16.1XXA Strain of muscle, fascia and tendon at neck level, initial encounter; S00.03XA Contusion of scalp, initial encounter; E11.9 Type 2 diabetes mellitus without complications; G20 Parkinson's disease; F41.9 Anxiety disorder, unspecified; F32.9 Major depressive disorder, single episode, unspecified; Z79.899 Other long term (current) drug therapy; Z79.84 Long term (current) use of oral hypoglycemic drugs; W18.30XA Fall on same level, unspecified, initial encounter
CPT/HCPCS: 70450; 72125

== ENCOUNTER 2019-09-11 07:06 | Outpatient (CLI) | payer MEDICARE, OTHER ==
--- NOTE | 2019-09-11 09:39 | MRI ---
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 FINDINGS: The ventricles are normal in size and configuration. There is no restricted diffusion, midline shift or any other mass effect, recent intraaxial hemorrhage, or extraaxial fluid collection. There is a moderate degree of T2-hyperintensities in the cerebral white matter consistent with chronic ischemic white matter changes due to microvascular atherosclerosis. IMPRESSION: 1. Moderate chronic ischemic white matter changes. 2. Otherwise negative. jn[] POS: CET
== END 2019-09-11 07:07 | disposition home or self-care (01) ==
LOC: BICMRI 07:06
DX: G31.83 Neurocognitive disorder with Lewy bodies (principal); I67.82 Cerebral ischemia
CPT/HCPCS: 70551

== ENCOUNTER 2020-03-01 21:42 | Emergency (ER) | payer MEDICARE, OTHER | END 2020-03-01 22:25 | disposition home or self-care (01) | LOC: ERS 21:42 | DX: I10 Essential (primary) hypertension (principal); E11.9 Type 2 diabetes mellitus without complications; F41.9 Anxiety disorder, unspecified; F32.9 Major depressive disorder, single episode, unspecified; Z79.899 Other long term (current) drug therapy | CPT/HCPCS: 93005 ==

== ENCOUNTER 2020-07-31 06:09 | Emergency (ER) | payer MEDICARE, OTHER ==
--- NOTE | 2020-07-31 09:16 | CT ---
PRELIMINARY REPORT/DIRECT RADIOLOGY/EMERGENCY AFTER HOURS PROCEDURE: EXAM: CT Chest Without Intravenous Contrast. CLINICAL HISTORY: FELL ON SATURDAY. WAS SEEN BY PCP. PT WAS TOLD HE WAS FINE. NO XRAYS WERE DONE. RIG HT RIB PAIN. PT DENIES LOC AND HITTING HIS HEAD. TECHNIQUE: Axial computed tomography images of the chest without intravenous contrast. COMPARISON: None provided. FINDINGS: LUNGS: Peripheral reticular thickening which likely represents chronic interstitial changes. No focal airspace consolidation. PLEURAL SPACES: No pleural effusion. No pneumothorax. HEART AND MEDIASTINUM: Status post median sternotomy. Coronary artery calcifications are present. LYMPH NODES: No lymphadenopathy. CHEST WALL AND UPPER ABDOMEN: The upper abdominal solid organs are unremarkable. The chest wall is un remarkable. BONES: Nondisplaced acute fractures of the right lateral eighth and ninth ribs with minimal overlying soft tissue swelling. Lateral 10th-12th ribs are not included in the field of view. IMPRESSION: Nondisplaced acute fractures of the right lateral eighth and ninth ribs with minimal over lying soft tissue swelling. Lateral 10th-12th ribs are not included in the field of view. 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 TIME: 6:32 AM. DATE: 07/31/2020. This is a final report. FINDINGS: Nondisplaced fractures of the right 8th and 9th lateral ribs without pneumothorax or significant pleu ral effusion. Chronic-appearing reticulonodular interstitial changes evidence for nonspecific interstitial chronic lung disease. This report is in agreement with the preliminary report. Transcribed Date/Time: 07/31/2020 9:23 AM
== END 2020-07-31 07:10 | disposition home or self-care (01) ==
LOC: ERS 06:09
DX: S22.41XA Multiple fractures of ribs, right side, initial encounter for closed fracture (principal); E11.9 Type 2 diabetes mellitus without complications; G20 Parkinson's disease; F41.9 Anxiety disorder, unspecified; F32.9 Major depressive disorder, single episode, unspecified; I70.90 Unspecified atherosclerosis; Z79.899 Other long term (current) drug therapy; Z79.84 Long term (current) use of oral hypoglycemic drugs; W18.30XA Fall on same level, unspecified, initial encounter
CPT/HCPCS: 71250

== ENCOUNTER 2021-07-17 10:50 | Outpatient (CLI) | payer MEDICARE, OTHER ==
[2021-07-17 23:43] LABS: SARS-CoV-2 PCR by NAA Not Detected (NotDetected)
== END 2021-07-17 10:51 | disposition home or self-care (01) ==
LOC: LABBT 10:50
PROVIDERS: ATTEND Family Medicine
DX: Z01.812 Encounter for preprocedural laboratory examination (principal); Z20.822 Contact with and (suspected) exposure to COVID-19
CPT/HCPCS: U0003; U0005

== ENCOUNTER 2021-07-20 10:59 | Outpatient (CLI) | payer MEDICARE, OTHER | END 2021-07-20 11:00 | disposition home or self-care (01) | PROVIDERS: ATTEND Psychiatry & Neurology Neurology | DX: I69.191 Dysphagia following nontraumatic intracerebral hemorrhage (principal); G20 Parkinson's disease | CPT/HCPCS: 74230 ==

== ENCOUNTER 2021-08-15 12:18 | Emergency (ER) | payer OTHER, MEDICARE ==
[2021-08-15] MEDS ORDERED: Boostrix 0.5 ML (Tdap) VIAL ONE (12:42)
[2021-08-15 13:09] LABS: #Eosinphils 0.2 thou/uL (0.0-0.7); #Lymphocytes 1.6 thou/uL (1.20-3.40); #Monocytes 0.5 thou/uL (0.11-0.59); #Neutrophils 4.9 thou/uL (1.40-6.50); %Basophils 0.4 % (0.0-1.0); %Eosinophils 2.4 % (0.0-10.0); %Lymphocytes 22.3 % (21.0-51.0); %Monocytes 6.5 % (0.0-10.0); %Neutrophils 68.4 % (42.0-75.0); Hemoglobin 13.1 g/dL (14.0-18.0); Mean Corpuscular HGB CONC 34.9 g/dL (32.0-36.0); Mean Corpuscular Hemoglobin 32.2 pg (27.0-31.0); Mean Corpuscular Volume 92.4 fL (78.0-98.0); Mean Platelet Volume 6.2 fL (7.4-10.4); Platelet Count 317 thou/uL (130-400); RBC Distribution Width 12.4 % (11.5-14.5); Red Blood Cell (RBC) Count 4.06 mill/uL (4.70-6.10); White Blood Cell (WBC) Count 7.2 thou/uL (4.8-10.8)
[2021-08-15 13:31] LABS: ALT (SGPT) Less than 7 U/L (8-55); AST (SGOT) 15 U/L (5-34); Albumin 3.9 g/dL (3.4-4.8); Alkaline Phosphatase 71 U/L (40-110); Anion Gap 13 mmol/L (10-20); BUN (Urea Nitrogen) 15 mg/dL (8.4-25.7); Bilirubin, Total 0.4 mg/dL (0.2-1.2); Calc. Creatinine Clearance 0 mL/min (70-130); Calcium 9.2 mg/dL (7.8-10.44); Carbon Dioxide 22 mmol/L (23-31); Chloride 94 mmol/L (98-107); Globulin 2.7 g/dL (2.4-3.5); Glucose 130 mg/dL (83-110); Potassium 4.3 mmol/L (3.5-5.1); Protein, Total 6.6 g/dL (5.8-8.1); Sodium 125 mmol/L (136-145)
== END 2021-08-15 14:30 | disposition home or self-care (01) ==
LOC: ERS 12:18
DX: S01.01XA Laceration without foreign body of scalp, initial encounter (principal); E87.1 Hypo-osmolality and hyponatremia; E11.9 Type 2 diabetes mellitus without complications; I70.90 Unspecified atherosclerosis; Z87.19 Personal history of other diseases of the digestive system; Z79.899 Other long term (current) drug therapy; Z79.84 Long term (current) use of oral hypoglycemic drugs; W01.10XA Fall on same level from slipping, tripping and stumbling with subsequent striking against unspecified object, initial encounter
CPT/HCPCS: 12001; 36415; 70450; 72125; 80053; 85025; 90471; 90715

== ENCOUNTER 2021-11-08 23:35 | Observation (INO) | payer MEDICARE, OTHER ==
[2021-11-08] MEDS ORDERED: Aspirin Chewable 81 MG TAB ONE (23:56)
[2021-11-08] MEDS ORDERED: Nitroglycerin 0.4 MG TAB 1 EACH ONE (23:56)
[2021-11-09 00:04] LABS: #Basophils 0.1 thou/uL (0.0-0.2); #Eosinphils 0.3 thou/uL (0.0-0.7); #Lymphocytes 2.4 thou/uL (1.20-3.40); #Monocytes 0.7 thou/uL (0.11-0.59); %Basophils 1.1 % (0.0-1.0); %Eosinophils 3.3 % (0.0-10.0); %Lymphocytes 28.4 % (21.0-51.0); %Monocytes 8.2 % (0.0-10.0); Hemoglobin 15.1 g/dL (14.0-18.0); Mean Corpuscular HGB CONC 33.8 g/dL (32.0-36.0); Mean Corpuscular Hemoglobin 32.1 pg (27.0-31.0); Mean Platelet Volume 6.5 fL (7.4-10.4); Platelet Count 275 thou/uL (130-400); White Blood Cell (WBC) Count 8.5 thou/uL (4.8-10.8)
[2021-11-09] MEDS ORDERED: Acetaminophen 500 MG TAB ONE (00:05)
[2021-11-09 00:24] LABS: ALT (SGPT) Less than 7 U/L (8-55); AST (SGOT) 15 U/L (5-34); Albumin 4.7 g/dL (3.4-4.8); Alkaline Phosphatase 81 U/L (40-110); Anion Gap 11 mmol/L (10-20); BUN (Urea Nitrogen) 21 mg/dL (8.4-25.7); Bilirubin, Total 0.4 mg/dL (0.2-1.2); Calc. Creatinine Clearance 0 mL/min (70-130); Calcium 9.7 mg/dL (7.8-10.44); Carbon Dioxide 27 mmol/L (23-31); Chloride 98 mmol/L (98-107); Globulin 3.1 g/dL (2.4-3.5); Glucose 123 mg/dL (83-110); Potassium 4.1 mmol/L (3.5-5.1); Protein, Total 7.8 g/dL (5.8-8.1); Sodium 132 mmol/L (136-145)
[2021-11-09] MEDS ORDERED: Nitroglycerin 2% Ointment 1 INCH/1 GM Packet ONE (00:24)
[2021-11-09 02:53] LABS: SARS-CoV-2 NAA Rapid Test Not Detected (NotDetected)
[2021-11-09] MEDS ORDERED: Ondansetron PF 4 MG/2 ML Vial IVP PRN (02:59)
[2021-11-09] MEDS ORDERED: Acetaminophen 325 MG TAB PO PRN (02:59)
[2021-11-09] MEDS ORDERED: Ondansetron ODT 4 MG TAB PO PRN (02:59)
[2021-11-09] MEDS ORDERED: Enoxaparin Sodium 40 MG/0.4 ML SYRINGE SC SCH ×2 (03:30→21:00)
[2021-11-09] MEDS ORDERED: Enoxaparin Sodium 40 MG/0.4 ML SYRINGE ONE (03:33)
[2021-11-09] MEDS ORDERED: Dextrose 5% in Water 1,000 ML IV PRN (03:59)
[2021-11-09] MEDS ORDERED: HumaLOG 300 UNITS/3 ML VIAL SC PRN ×2 (03:59)
[2021-11-09] MEDS ORDERED: Dextrose 50% Abboject 50 ML SYRINGE SLOW IVP PRN (03:59)
[2021-11-09] MEDS ORDERED: hydrALAZINE 20 MG/ML VIAL SLOW IVP PRN (04:02)
[2021-11-09 04:35] LABS: Troponin I Less than 0.010 ng/mL (< 0.028)
[2021-11-09 06:42] LABS: #Basophils 0.1 thou/uL (0.0-0.2); #Eosinphils 0.2 thou/uL (0.0-0.7); #Lymphocytes 2.3 thou/uL (1.20-3.40); #Monocytes 0.5 thou/uL (0.11-0.59); #Neutrophils 4.3 thou/uL (1.40-6.50); %Basophils 0.9 % (0.0-1.0); %Eosinophils 3.2 % (0.0-10.0); %Lymphocytes 31.8 % (21.0-51.0); %Monocytes 6.2 % (0.0-10.0); %Neutrophils 57.9 % (42.0-75.0); Hemoglobin 14.1 g/dL (14.0-18.0); Mean Corpuscular HGB CONC 33.1 g/dL (32.0-36.0); Mean Corpuscular Hemoglobin 31.7 pg (27.0-31.0); Mean Corpuscular Volume 95.9 fL (78.0-98.0); Mean Platelet Volume 6.5 fL (7.4-10.4); Platelet Count 256 thou/uL (130-400); Red Blood Cell (RBC) Count 4.44 mill/uL (4.70-6.10); White Blood Cell (WBC) Count 7.4 thou/uL (4.8-10.8)
[2021-11-09 06:50] LABS: Hemoglobin A1c 6.5 % (4.0-6.0)
[2021-11-09 07:01] LABS: ALT (SGPT) 13 U/L (8-55); AST (SGOT) 14 U/L (5-34); Alkaline Phosphatase 63 U/L (40-110); Anion Gap 8 mmol/L (10-20); BUN (Urea Nitrogen) 18 mg/dL (8.4-25.7); Bilirubin, Total 0.6 mg/dL (0.2-1.2); Calc. Creatinine Clearance 72 mL/min (70-130); Carbon Dioxide 28 mmol/L (23-31); Cardiac Risk 3.3 (Less than 4.5); Chloride 100 mmol/L (98-107); Cholesterol 157 mg/dl (< 200 Desired); Globulin 2.6 g/dL (2.4-3.5); Glucose 118 mg/dL (83-110); HDL Cholesterol 48 mg/dL (>60 Neg Risk); LDL Cholesterol, Calculated 91 mg/dL; Potassium 4.2 mmol/L (3.5-5.1); Protein, Total 6.6 g/dL (5.8-8.1); Sodium 132 mmol/L (136-145); Triglycerides 89 mg/dL (Less than 150)
[2021-11-09 07:05] LABS: Troponin I Less than 0.010 ng/mL (< 0.028)
[2021-11-09 15:43] VITALS: BMI 25.4
[2021-11-09] MEDS ORDERED: Polyethylene Glycol 3350 17 GM Packet PO PRN (17:22)
[2021-11-09] MEDS ORDERED: Carbidopa/Levodopa 25-100 mg Tablet PO SCH ×2 (21:00)
[2021-11-09] MEDS ORDERED: Donepezil HCl 5 MG TAB PO SCH (21:00)
[2021-11-09] MEDS ORDERED: Donepezil HCl 10 MG TAB PO SCH (21:00)
[2021-11-09] MEDS: Amlodipine 5 MG TAB PO SCH (21:39)
[2021-11-09] MEDS: Carbidopa/Levodopa 25-100 mg Tablet PO SCH (21:39)
[2021-11-10] MEDS ORDERED: Aspirin 81 mg Enteric Coated Tablet PO SCH (09:00)
[2021-11-10 11:41] LABS: #Basophils 0.1 thou/uL (0.0-0.2); #Eosinphils 0.2 thou/uL (0.0-0.7); #Lymphocytes 1.8 thou/uL (1.20-3.40); #Monocytes 0.6 thou/uL (0.11-0.59); %Basophils 0.7 % (0.0-1.0); %Monocytes 7.3 % (0.0-10.0); Mean Corpuscular HGB CONC 32.4 g/dL (32.0-36.0); Mean Corpuscular Hemoglobin 30.7 pg (27.0-31.0); Mean Corpuscular Volume 94.7 fL (78.0-98.0); Mean Platelet Volume 6.3 fL (7.4-10.4); Platelet Count 299 thou/uL (130-400); RBC Distribution Width 13.2 % (11.5-14.5); Red Blood Cell (RBC) Count 5.21 mill/uL (4.70-6.10); White Blood Cell (WBC) Count 7.6 thou/uL (4.8-10.8)
[2021-11-10 11:52] VITALS: BP 139/66; TEMP 97.6
[2021-11-10 12:03] LABS: Anion Gap 14 mmol/L (10-20); BUN (Urea Nitrogen) 13 mg/dL (8.4-25.7); Calc. Creatinine Clearance 60 mL/min (70-130); Carbon Dioxide 25 mmol/L (23-31); Chloride 101 mmol/L (98-107); Glucose 127 mg/dL (83-110); Potassium 4.7 mmol/L (3.5-5.1); Sodium 135 mmol/L (136-145)
[2021-11-10] MEDS: Carbidopa/Levodopa 25-100 mg Tablet PO SCH ×2 (12:58→16:43)
[2021-11-10] MEDS: Amlodipine 5 MG TAB PO SCH (12:59)
== END 2021-11-10 16:45 | disposition home or self-care (01) ==
LOC: ERS 23:35 → ERHOLD 11-09 01:27 → 2NO 11-09 01:44
PROVIDERS: ADMIT Student in an Organized Health Care Education/Training Program; ATTEND Physician Assistant
DX: I25.110 Atherosclerotic heart disease of native coronary artery with unstable angina pectoris (principal); I10 Essential (primary) hypertension; E11.9 Type 2 diabetes mellitus without complications; G20 Parkinson's disease; F02.80 Dementia in other diseases classified elsewhere, unspecified severity, without behavioral disturbance, psychotic disturbance, mood disturbance, and anxiety; E78.5 Hyperlipidemia, unspecified; J84.9 Interstitial pulmonary disease, unspecified; I44.2 Atrioventricular block, complete; Z79.02 Long term (current) use of antithrombotics/antiplatelets; Z79.84 Long term (current) use of oral hypoglycemic drugs; Z79.899 Other long term (current) drug therapy; Z90.49 Acquired absence of other specified parts of digestive tract; Z95.1 Presence of aortocoronary bypass graft; Z20.822 Contact with and (suspected) exposure to COVID-19
CPT/HCPCS: 71045; 78452; 80048; 80053 ×2; 80061; 82962 ×2; 83036; 84484 ×3; 85025 ×3; 93005; 93017; A9500; U0002; 36415; 36416; J1650

== ENCOUNTER 2022-11-16 08:55 | Outpatient (CLI) | payer MEDICARE, OTHER ==
[2022-11-16 10:22] LABS: #Eosinphils 0.1 10x3/uL (0.0-0.5); #Monocytes 0.5 10x3/uL (0.0-1.1); #Neutrophils 6.5 10x3/uL (1.5-8.4); %Basophils 0.5 % (0.0-2.0); %Eosinophils 1.4 % (0.0-6.0); %Lymphocytes 16.7 % (18.0-47.0); %Monocytes 5.4 % (0.0-10.0); %Neutrophils 75.6 % (40.0-75.0); Hemoglobin 14.1 g/dL (13.5-17.5); Mean Corpuscular HGB CONC 33.3 g/dL (32.0-36.0); Mean Platelet Volume 9.9 fl (7.4-10.4); Platelet Count 288 10x3/uL (150-450); RBC Distribution Width 13.4 % (11.5-14.5); White Blood Cell (WBC) Count 8.6 10x3/uL (3.5-10.5)
[2022-11-16 10:49] LABS: Anion Gap 13 mmol/L (10-20); BUN (Urea Nitrogen) 15 mg/dL (8.4-25.7); Calc. Creatinine Clearance 0 mL/min (70-130); Calcium 9.4 mg/dL (7.8-10.44); Carbon Dioxide 26 mmol/L (23-31); Chloride 101 mmol/L (98-107); Estimated GFR 78; Glucose 146 mg/dL (83-110); Potassium 4.4 mmol/L (3.5-5.1); Sodium 136 mmol/L (136-145)
== END 2022-11-16 08:56 | disposition home or self-care (01) ==
LOC: LABBT 08:55
PROVIDERS: ATTEND Orthopaedic Surgery
DX: Z01.812 Encounter for preprocedural laboratory examination (principal); M17.12 Unilateral primary osteoarthritis, left knee
CPT/HCPCS: 80048; 85025; 85610; 87081

== ENCOUNTER 2022-11-21 05:40 | Observation (INO) | payer MEDICARE, OTHER ==
[2022-11-19 14:15] VITALS: BMI 24.0
[2022-11-21] MEDS ORDERED: Vancomycin 1 GM/200 ML (FROZEN) BAG ONE (05:55)
[2022-11-21] MEDS ORDERED: Tranexamic Acid 1,000 MG/10 ML VIAL ONE (05:55)
[2022-11-21] MEDS ORDERED: Sodium Chloride 0.9% 100 ML ONE (05:55)
[2022-11-21] MEDS ORDERED: fentaNYL PF 100 MCG/2 ML SYRINGE ONE (06:19)
[2022-11-21] MEDS ORDERED: Midazolam HCl 2 mg/2 ml Vial ONE (06:37)
[2022-11-21] MEDS ORDERED: Bupivacaine PF 0.5% 30 ML VIAL ONE (06:37)
[2022-11-21] MEDS ORDERED: Lidocaine 1% (PF) 30 ML VIAL ONE (06:37)
[2022-11-21] MEDS ORDERED: Fentanyl 100 MCG/2 ML VIAL ONE (06:37)
[2022-11-21] MEDS ORDERED: CEFAZOLIN 2 GM VIAL ONE (07:00)
[2022-11-21 07:09] LABS: SARS-CoV-2 NAA Rapid Test Not Detected (NotDetected)
[2022-11-21] MEDS ORDERED: ePHEDrine 50 MG/ML VIAL ONE (07:12)
[2022-11-21] MEDS ORDERED: Lidocaine 1% PF 5 ML VIAL ONE (07:12)
[2022-11-21] MEDS ORDERED: PROPOFOL 200 MG/20 ML VIAL ONE (07:12)
[2022-11-21] MEDS ORDERED: Ketorolac Tromethamine 30 MG/ML VIAL ONE (07:12)
[2022-11-21] MEDS ORDERED: Ondansetron PF 4 MG/2 ML Vial ONE (07:12)
[2022-11-21] MEDS ORDERED: Fentanyl 100 MCG/2 ML VIAL IV PRN (07:36)
[2022-11-21] MEDS ORDERED: Bupivacaine/Epinephrine 0.25% 30 ML VIAL ONE (07:43)
[2022-11-21] MEDS ORDERED: HYDROcodone/Acetaminophen 10/325 mg Tablet PO PRN ×2 (07:45)
[2022-11-21] MEDS ORDERED: Ondansetron PF 4 MG/2 ML Vial IVP PRN ×2 (07:45→09:02)
[2022-11-21] MEDS ORDERED: Ropivacaine 0.2% 550 ML 550 ML NERVE BLCK SCH (07:45)
[2022-11-21] MEDS ORDERED: Promethazine HCl 25 MG/ML VIAL IM PRN ×3 (07:45→09:04)
[2022-11-21] MEDS ORDERED: Zolpidem Tartrate 5 MG TAB PO PRN ×2 (07:45→09:02)
[2022-11-21] MEDS ORDERED: traMADol HCl 50 MG TAB PO PRN ×2 (07:45)
[2022-11-21] MEDS ORDERED: Acetaminophen 325 MG TAB PO PRN (09:02)
[2022-11-21] MEDS ORDERED: diphenhydrAMINE 25 MG CAP PO PRN (09:02)
[2022-11-21] MEDS ORDERED: Ondansetron HCl/PF 4 MG/2 ML Vial IVP PRN (09:04)
[2022-11-21] MEDS ORDERED: Polyethylene Glycol 3350 17 GM Packet PO PRN (12:41)
[2022-11-21] MEDS ORDERED: Icosapent Ethyl 1 GM CAPSULE PO SCH (13:00)
[2022-11-21] MEDS: Aspirin 81 mg Enteric Coated Tablet PO SCH ×2 (13:04→21:14)
[2022-11-21] MEDS: Senokot S 8.6-50 MG TAB PO SCH ×2 (13:05→21:14)
[2022-11-21] MEDS: Ferrous Gluconate 324 MG TAB PO SCH ×2 (13:05→21:14)
[2022-11-21] MEDS: Multivitamin W/ Minerals 1 TAB PO SCH (13:05)
[2022-11-21] MEDS: Sodium Chloride 0.9% 1,000 ML IV SCH ×2 (13:15→20:38)
[2022-11-21] MEDS: Ketorolac Tromethamine 30 MG/ML VIAL IVP SCH ×3 (13:56→23:59)
[2022-11-21] MEDS: Carbidopa/Levodopa 25-250 mg Tablet PO SCH ×2 (13:57→21:14)
[2022-11-21] MEDS: CEFAZOLIN 2 GM in Sodium Chloride 0.9% 100 ML IVPB SCH ×2 (15:49→21:15)
[2022-11-21] MEDS: Dicyclomine 10 MG CAP PO SCH ×2 (15:50→21:14)
[2022-11-21] MEDS ORDERED: Dextrose 50% Abboject 50 ML SYRINGE SLOW IVP PRN (16:02)
[2022-11-21] MEDS ORDERED: Dextrose 5% in Water 1,000 ML IV PRN (16:02)
[2022-11-21] MEDS ORDERED: HumaLOG 300 UNITS/3 ML VIAL SC PRN (16:02)
[2022-11-21] MEDS ORDERED: cloNIDine 0.1 MG TAB PO PRN (16:18)
[2022-11-21] MEDS: metFORMIN 500 MG TAB PO SCH (18:34)
[2022-11-21] MEDS: Icosapent Ethyl 1 GM CAPSULE PO SCH (18:34)
[2022-11-21] MEDS ORDERED: Sertraline 100 MG TAB PO SCH (21:00)
[2022-11-22] MEDS: Sodium Chloride 0.9% 1,000 ML IV SCH (06:02)
[2022-11-22] MEDS: Ketorolac Tromethamine 30 MG/ML VIAL IVP SCH ×2 (06:03→13:10)
[2022-11-22 06:52] LABS: Hemoglobin 11.3 g/dL (14.0-18.0); Mean Corpuscular Hemoglobin 32.2 pg (27.0-31.0); Mean Corpuscular Volume 94.8 fl (78.0-98.0); Mean Platelet Volume 8.3 fL (7.4-10.4); Platelet Count 203 10x3/uL (130-400); RBC Distribution Width 12.9 % (11.5-14.5); White Blood Cell (WBC) Count 7.6 10x3/uL (4.8-10.8)
[2022-11-22] MEDS ORDERED: Cyanocobalamin (Vitamin B-12) 1,000 MCG TAB PO SCH (09:00)
[2022-11-22] MEDS ORDERED: Cholecalciferol 1,000 UNITS (25 MCG) TAB PO SCH (09:00)
[2022-11-22] MEDS ORDERED: [UNRECOGNIZED DRUG - OTHER] PO SCH (09:00)
[2022-11-22] MEDS ORDERED: Clopidogrel Bisulfate 75 MG TAB PO SCH (09:00)
[2022-11-22] MEDS ORDERED: Fludrocortisone Acetate 0.1 MG TAB PO SCH (09:00)
[2022-11-22] MEDS ORDERED: NAMZARIC PO SCH (09:00)
[2022-11-22] MEDS: Aspirin 81 mg Enteric Coated Tablet PO SCH (09:45)
[2022-11-22] MEDS: Senokot S 8.6-50 MG TAB PO SCH (09:46)
[2022-11-22] MEDS: metFORMIN 500 MG TAB PO SCH (09:46)
[2022-11-22] MEDS: Multivitamin W/ Minerals 1 TAB PO SCH (09:46)
[2022-11-22] MEDS: Dicyclomine 10 MG CAP PO SCH (09:46)
[2022-11-22] MEDS: Ferrous Gluconate 324 MG TAB PO SCH (09:46)
[2022-11-22 11:53] VITALS: BP 153/74; TEMP 98.1
[2022-11-22] MEDS: Carbidopa/Levodopa 25-250 mg Tablet PO SCH (13:10)
[2022-11-22] MEDS: Icosapent Ethyl 1 GM CAPSULE PO SCH (13:10)
== END 2022-11-22 15:32 | disposition home or self-care (01) ==
LOC: SDC 05:40 → SURG A 09:02
PROVIDERS: ADMIT Orthopaedic Surgery; ATTEND Orthopaedic Surgery
PROC: 0SRD0J9 Replacement of Left Knee Joint with Synthetic Substitute, Cemented, Open Approach (ICD-10-PCS; principal; 2022-11-21)
DX: M17.12 Unilateral primary osteoarthritis, left knee (principal); G20 Parkinson's disease; I25.10 Atherosclerotic heart disease of native coronary artery without angina pectoris; E78.5 Hyperlipidemia, unspecified; G31.83 Neurocognitive disorder with Lewy bodies; F02.80 Dementia in other diseases classified elsewhere, unspecified severity, without behavioral disturbance, psychotic disturbance, mood disturbance, and anxiety; I12.9 Hypertensive chronic kidney disease with stage 1 through stage 4 chronic kidney disease, or unspecified chronic kidney disease; E11.22 Type 2 diabetes mellitus with diabetic chronic kidney disease; N18.2 Chronic kidney disease, stage 2 (mild); Z87.891 Personal history of nicotine dependence; Z79.84 Long term (current) use of oral hypoglycemic drugs; Z79.899 Other long term (current) drug therapy; Z20.822 Contact with and (suspected) exposure to COVID-19; Z95.1 Presence of aortocoronary bypass graft; Z95.5 Presence of coronary angioplasty implant and graft; Z96.651 Presence of right artificial knee joint
CPT/HCPCS: 27447; 73560; 82962 ×2; 85027; 97110 ×2; 97116 ×2; 97530; A4306; C1713; C1776; J3370; U0002; 36415; 36416; 96365; 96375; 96376; G0378; J1885; J2001; J2250; J2405; J2704; J2795; J3010; J3490; J7050; S0020

== ENCOUNTER 2023-02-02 14:31 | Emergency (ER) | payer MEDICARE, OTHER ==
[2023-02-02 15:01] LABS: #Eosinphils 0.1 thou/uL (0.0-0.7); #Monocytes 0.5 thou/uL (0.11-0.59); #Neutrophils 5.1 thou/uL (1.40-6.50); %Basophils 0.5 % (0.0-1.0); %Eosinophils 1.7 % (0.0-10.0); %Lymphocytes 25.8 % (21.0-51.0); %Monocytes 6.1 % (0.0-10.0); %Neutrophils 65.5 % (42.0-75.0); Hemoglobin 12.5 g/dL (14.0-18.0); Mean Corpuscular HGB CONC 32.4 g/dL (32.0-36.0); Mean Corpuscular Hemoglobin 30.3 pg (27.0-31.0); Mean Corpuscular Volume 93.7 fl (78.0-98.0); Mean Platelet Volume 10.2 fL (7.4-10.4); Platelet Count 250 10x3/uL (130-400); RBC Distribution Width 14.2 % (11.5-14.5); Red Blood Cell (RBC) Count 4.12 mill/uL (4.70-6.10); White Blood Cell (WBC) Count 7.8 10x3/uL (4.8-10.8)
[2023-02-02 15:17] LABS: Prothrombin Time 13.5 sec (12.0-14.7)
[2023-02-02 15:18] LABS: PTT 28.7 sec (22.9-36.1)
[2023-02-02 15:27] LABS: ALT (SGPT) 7 U/L (8-55); AST (SGOT) 13 U/L (5-34); Albumin 4.2 g/dL (3.4-4.8); Alkaline Phosphatase 65 U/L (40-110); Anion Gap 12 mmol/L (10-20); BUN (Urea Nitrogen) 17 mg/dL (8.4-25.7); Bilirubin, Total 0.2 mg/dL (0.2-1.2); Calc. Creatinine Clearance 0 mL/min (70-130); Carbon Dioxide 24 mmol/L (23-31); Chloride 103 mmol/L (98-107); Estimated GFR 78; Globulin 2.5 g/dL (2.4-3.5); Glucose 173 mg/dL (83-110); Potassium 4.2 mmol/L (3.5-5.1); Protein, Total 6.7 g/dL (5.8-8.1); Sodium 135 mmol/L (136-145)
== END 2023-02-02 17:16 | disposition home or self-care (01) ==
LOC: ERS 14:31
DX: S00.83XA Contusion of other part of head, initial encounter (principal); S00.532A Contusion of oral cavity, initial encounter; E11.9 Type 2 diabetes mellitus without complications; W18.30XA Fall on same level, unspecified, initial encounter
CPT/HCPCS: 36415; 70450; 70486; 72125; 80053; 84484; 85025; 85610; 85730; 93005; 94760

== ENCOUNTER 2023-04-24 05:30 | Emergency (ER) | payer MEDICARE, OTHER ==
[2023-04-24 06:13] LABS: #Monocytes 0.7 thou/uL (0.11-0.59); #Neutrophils 11.1 thou/uL (1.40-6.50); %Basophils 0.2 % (0.0-1.0); %Eosinophils 0.1 % (0.0-10.0); %Lymphocytes 3.7 % (21.0-51.0); %Neutrophils 89.4 % (42.0-75.0); Hemoglobin 12.6 g/dL (14.0-18.0); Mean Corpuscular HGB CONC 34.1 g/dL (32.0-36.0); Mean Corpuscular Hemoglobin 30.6 pg (27.0-31.0); Mean Corpuscular Volume 89.8 fl (78.0-98.0); Platelet Count 255 10x3/uL (130-400); RBC Distribution Width 14.5 % (11.5-14.5); Red Blood Cell (RBC) Count 4.12 mill/uL (4.70-6.10); White Blood Cell (WBC) Count 12.4 10x3/uL (4.8-10.8)
[2023-04-24] MEDS ORDERED: Bacitracin 1 PK ONE (06:14)
[2023-04-24 06:38] LABS: ALT (SGPT) 10 U/L (8-55); AST (SGOT) 19 U/L (5-34); Albumin 4.4 g/dL (3.4-4.8); Alkaline Phosphatase 59 U/L (40-110); Anion Gap 15 mmol/L (10-20); BUN (Urea Nitrogen) 17 mg/dL (8.4-25.7); Bilirubin, Total 0.5 mg/dL (0.2-1.2); Calc. Creatinine Clearance 0 mL/min (70-130); Calcium 8.8 mg/dL (7.8-10.44); Carbon Dioxide 23 mmol/L (23-31); Chloride 102 mmol/L (98-107); Estimated GFR 82; Globulin 2.6 g/dL (2.4-3.5); Glucose 143 mg/dL (83-110); Potassium 3.9 mmol/L (3.5-5.1); Sodium 136 mmol/L (136-145)
[2023-04-24 10:01] LABS: Bacteria/HPF None Seen HPF (None Seen); Bilirubin Negative (Negative); Blood, Urine Negative (Negative); Clarity Clear (Clear); Glucose, Urine (Dipstick) Normal (Negative); Ketone, Urine Negative (Negative); Leukocyte Negative Leu/uL (Negative); Nitrite Negative (Negative); Protein, Urine (Dipstick) 50 mg/dL (Neg-Trace); RBC/HPF 0-3 HPF (0-3); Specific Gravity, Urine 1.026 (1.002-1.036); Squamous Epithelial 0-3 HPF (0-3); Urobilinogen Normal mg/dL (Less than 2); WBC/HPF 0-3 HPF (0-3)
== END 2023-04-24 10:27 | disposition home or self-care (01) ==
LOC: ERS 05:30
DX: S32.008A Other fracture of unspecified lumbar vertebra, initial encounter for closed fracture (principal); S50.01XA Contusion of right elbow, initial encounter; N32.89 Other specified disorders of bladder; E11.9 Type 2 diabetes mellitus without complications; Z79.84 Long term (current) use of oral hypoglycemic drugs; W19.XXXA Unspecified fall, initial encounter
CPT/HCPCS: 36415; 70450; 71045; 72125; 72131; 80053; 81001; 83880; 84484; 85025; 93005

== ENCOUNTER 2023-04-30 13:55 | Inpatient (IN) | payer MEDICARE, OTHER ==
[2023-04-30 14:26] LABS: #Eosinphils 0.1 thou/uL (0.0-0.7); #Monocytes 0.5 thou/uL (0.11-0.59); #Neutrophils 4.6 thou/uL (1.40-6.50); %Basophils 0.1 % (0.0-1.0); %Eosinophils 0.7 % (0.0-10.0); %Lymphocytes 24.6 % (21.0-51.0); %Monocytes 7.3 % (0.0-10.0); Hematocrit 28.1 % (42.0-52.0); Hemoglobin 10.1 g/dL (14.0-18.0); Mean Corpuscular HGB CONC 35.9 g/dL (32.0-36.0); Mean Corpuscular Volume 88.9 fl (78.0-98.0); Mean Platelet Volume 9.2 fL (7.4-10.4); Platelet Count 280 10x3/uL (130-400); RBC Distribution Width 13.8 % (11.5-14.5); Red Blood Cell (RBC) Count 3.16 mill/uL (4.70-6.10); White Blood Cell (WBC) Count 6.9 10x3/uL (4.8-10.8)
[2023-04-30 14:56] LABS: ALT (SGPT) Less than 7 U/L (8-55); AST (SGOT) 18 U/L (5-34); Albumin 3.8 g/dL (3.4-4.8); Alkaline Phosphatase 55 U/L (40-110); Anion Gap 13 mmol/L (10-20); BUN (Urea Nitrogen) 15 mg/dL (8.4-25.7); Bilirubin, Total 0.8 mg/dL (0.2-1.2); CK (CPK) 269 U/L (30-200); Calc. Creatinine Clearance 0 mL/min (70-130); Calcium 8.6 mg/dL (7.8-10.44); Carbon Dioxide 23 mmol/L (23-31); Chloride 102 mmol/L (98-107); Estimated GFR 92; Globulin 2.4 g/dL (2.4-3.5); Glucose 129 mg/dL (83-110); Potassium 3.5 mmol/L (3.5-5.1); Protein, Total 6.2 g/dL (5.8-8.1); Sodium 134 mmol/L (136-145)
[2023-04-30 16:25] LABS: Bacteria/HPF None Seen HPF (None Seen); Bilirubin Negative (Negative); Blood, Urine Negative (Negative); CAUTI Indications for Culture Alt mental st,lethar; Clarity Clear (Clear); Glucose, Urine (Dipstick) Normal (Negative); Ketone, Urine Negative (Negative); Leukocyte Negative Leu/uL (Negative); Nitrite Negative (Negative); Protein, Urine (Dipstick) Negative (Neg-Trace); RBC/HPF 0-3 HPF (0-3); Specific Gravity, Urine 1.012 (1.002-1.036); Squamous Epithelial 0-3 HPF (0-3); Urobilinogen Normal mg/dL (Less than 2); WBC/HPF 0-3 HPF (0-3)
[2023-04-30 16:27] LABS: Urine Culture Reflex No No
[2023-04-30] MEDS ORDERED: Ondansetron ODT 4 MG TAB PO PRN (21:12)
[2023-04-30] MEDS ORDERED: Ondansetron PF 4 MG/2 ML Vial IVP PRN (21:12)
[2023-04-30] MEDS ORDERED: Acetaminophen 325 MG TAB PO PRN (21:12)
[2023-04-30] MEDS ORDERED: Acetaminophen 650 MG Suppository PR PRN (21:12)
[2023-04-30 21:49] VITALS: BMI 23.4
[2023-04-30] MEDS ORDERED: traZODone HCl 50 MG TAB PO PRN (23:48)
[2023-04-30] MEDS ORDERED: Glucagon 1 MG/ML KIT IM PRN (23:50)
[2023-04-30] MEDS ORDERED: Dextrose 5% in Water 1,000 ML IV PRN (23:50)
[2023-04-30] MEDS ORDERED: HumaLOG 300 UNITS/3 ML VIAL SC PRN ×2 (23:50)
[2023-04-30] MEDS ORDERED: Dextrose 50% Abboject 50 ML SYRINGE SLOW IVP PRN (23:50)
[2023-05-01] MEDS ORDERED: Polyethylene Glycol 3350 17 GM Packet PO PRN
[2023-05-01] MEDS ORDERED: Dicyclomine 10 MG CAP PO SCH ×2 (00:15→09:00)
[2023-05-01] MEDS ORDERED: Desmopressin 0.2 mg Tablet PO SCH ×3 (00:15→21:00)
[2023-05-01] MEDS ORDERED: Betamethasone Val 0.1% Lotion 60 ML BOT TOP PRN (00:29)
[2023-05-01] MEDS ORDERED: SILDENAFIL CITRATE 100 MG PO PRN (00:49)
[2023-05-01 04:12] LABS: #Eosinphils 0.1 thou/uL (0.0-0.7); #Monocytes 0.5 thou/uL (0.11-0.59); #Neutrophils 3.9 thou/uL (1.40-6.50); %Basophils 0.3 % (0.0-1.0); %Eosinophils 1.4 % (0.0-10.0); %Lymphocytes 25.7 % (21.0-51.0); %Monocytes 8.5 % (0.0-10.0); %Neutrophils 63.3 % (42.0-75.0); Hematocrit 29.4 % (42.0-52.0); Mean Corpuscular Hemoglobin 30.7 pg (27.0-31.0); Mean Corpuscular Volume 90.2 fl (78.0-98.0); Mean Platelet Volume 9.2 fL (7.4-10.4); Platelet Count 311 10x3/uL (130-400); RBC Distribution Width 13.7 % (11.5-14.5); Red Blood Cell (RBC) Count 3.26 mill/uL (4.70-6.10); White Blood Cell (WBC) Count 6.2 10x3/uL (4.8-10.8)
[2023-05-01 04:32] LABS: Anion Gap 15 mmol/L (10-20); BUN (Urea Nitrogen) 11 mg/dL (8.4-25.7); Calc. Creatinine Clearance 73 mL/min (70-130); Calcium 8.9 mg/dL (7.8-10.44); Carbon Dioxide 23 mmol/L (23-31); Chloride 102 mmol/L (98-107); Estimated GFR 94; Glucose 95 mg/dL (83-110); Potassium 3.2 mmol/L (3.5-5.1); Sodium 137 mmol/L (136-145)
[2023-05-01] MEDS ORDERED: Bempedoic Acid [Nexletol] 180 MG Tablet PO SCH (09:00)
[2023-05-01] MEDS: Carbidopa/Levodopa 25-250 mg Tablet PO SCH ×3 (10:19→20:42)
[2023-05-01] MEDS: Clopidogrel Bisulfate 75 MG TAB PO SCH (10:21)
[2023-05-01] MEDS: Fludrocortisone Acetate 0.1 MG TAB PO SCH (10:21)
[2023-05-01] MEDS: Donepezil HCl 10 MG TAB PO SCH ×2 (10:23→20:42)
[2023-05-01] MEDS: Trospium 20 MG TAB PO SCH ×2 (10:24→20:42)
[2023-05-01] MEDS: Dicyclomine 10 MG CAP PO SCH ×3 (10:25→20:43)
[2023-05-01] MEDS: Aspirin 81 mg Enteric Coated Tablet PO SCH ×2 (10:49→20:42)
[2023-05-02] MEDS ORDERED: Electrolyte Replacement Protocol 1 EACH FS SCH (09:00)
[2023-05-02] MEDS: Trospium 20 MG TAB PO SCH (09:38)
[2023-05-02] MEDS: Carbidopa/Levodopa 25-250 mg Tablet PO SCH ×2 (09:38→13:39)
[2023-05-02] MEDS: Donepezil HCl 10 MG TAB PO SCH (09:38)
[2023-05-02] MEDS: Aspirin 81 mg Enteric Coated Tablet PO SCH (09:38)
[2023-05-02] MEDS: Dicyclomine 10 MG CAP PO SCH (09:38)
[2023-05-02] MEDS: Clopidogrel Bisulfate 75 MG TAB PO SCH (09:38)
[2023-05-02 09:55] LABS: Anion Gap 10 mmol/L (10-20); BUN (Urea Nitrogen) 17 mg/dL (8.4-25.7); Calc. Creatinine Clearance 64 mL/min (70-130); Calcium 9.2 mg/dL (7.8-10.44); Carbon Dioxide 26 mmol/L (23-31); Chloride 101 mmol/L (98-107); Estimated GFR 90; Glucose 147 mg/dL (83-110); Magnesium 1.7 mg/dL (1.6-2.6); Potassium 3.7 mmol/L (3.5-5.1); Sodium 133 mmol/L (136-145)
[2023-05-02] MEDS: Fludrocortisone Acetate 0.1 MG TAB PO SCH (10:05)
[2023-05-02] MEDS ORDERED: Magnesium 2 GM/50 ML(in water) 2 GM in Premix Bag 1 BAG IVPB SCH (10:15)
[2023-05-02 16:07] VITALS: BP 134/73; TEMP 97.9
== END 2023-05-02 15:30 | DRG 551 ==
LOC: ERS 13:55 → 2NO 19:37 → OBSVTOIN 05-02 11:36
PROVIDERS: ADMIT Student in an Organized Health Care Education/Training Program; ATTEND Internal Medicine
DX: S32.019A Unspecified fracture of first lumbar vertebra, initial encounter for closed fracture (principal); U07.1 COVID-19; E87.1 Hypo-osmolality and hyponatremia; S70.11XA Contusion of right thigh, initial encounter; F03.90 Unspecified dementia, unspecified severity, without behavioral disturbance, psychotic disturbance, mood disturbance, and anxiety; Z98.890 Other specified postprocedural states; G20 Parkinson's disease; Z79.84 Long term (current) use of oral hypoglycemic drugs; Z79.899 Other long term (current) drug therapy; N18.2 Chronic kidney disease, stage 2 (mild); E11.22 Type 2 diabetes mellitus with diabetic chronic kidney disease; D63.1 Anemia in chronic kidney disease; I25.10 Atherosclerotic heart disease of native coronary artery without angina pectoris; Z66 Do not resuscitate; W18.30XA Fall on same level, unspecified, initial encounter
CPT/HCPCS: 36415; 36416; 70450; 71045; 72125; 72128; 72131; 80048; 80053; 81001; 82550; 83735; 83880; 84484; 85025; 93005; J3475

== ENCOUNTER 2023-05-20 12:40 | Outpatient (CLI) | payer MEDICARE, OTHER | END 2023-05-20 12:41 | disposition home or self-care (01) | LOC: RAD 12:40 | PROVIDERS: ATTEND Physician Assistant | DX: S32.000D Wedge compression fracture of unspecified lumbar vertebra, subsequent encounter for fracture with routine healing (principal); S32.010D Wedge compression fracture of first lumbar vertebra, subsequent encounter for fracture with routine healing; M47.816 Spondylosis without myelopathy or radiculopathy, lumbar region | CPT/HCPCS: 72100 ==

== ENCOUNTER 2023-07-01 10:09 | Outpatient (CLI) | payer MEDICARE, OTHER | END 2023-07-01 10:10 | disposition home or self-care (01) | LOC: RAD 10:09 | PROVIDERS: ATTEND Neurological Surgery | DX: S32.019A Unspecified fracture of first lumbar vertebra, initial encounter for closed fracture (principal) | CPT/HCPCS: 72100 ==

== ENCOUNTER 2023-07-30 10:34 | Outpatient (CLI) | payer MEDICARE, OTHER | END 2023-07-30 10:35 | disposition home or self-care (01) | LOC: BICRAD 10:34 | PROVIDERS: ATTEND Neurological Surgery | DX: S22.008A Other fracture of unspecified thoracic vertebra, initial encounter for closed fracture (principal); M47.816 Spondylosis without myelopathy or radiculopathy, lumbar region; S32.010A Wedge compression fracture of first lumbar vertebra, initial encounter for closed fracture | CPT/HCPCS: 72100 ==

== ENCOUNTER 2023-08-29 10:25 | Outpatient (CLI) | payer MEDICARE, OTHER | END 2023-08-29 10:26 | disposition home or self-care (01) | LOC: BICRAD 10:25 | PROVIDERS: ATTEND Neurological Surgery | DX: M48.52XA Collapsed vertebra, not elsewhere classified, cervical region, initial encounter for fracture (principal) | CPT/HCPCS: 72100 ==

== ENCOUNTER 2023-11-22 03:17 | Observation (INO) | payer MEDICARE, OTHER ==
[2023-11-22 03:46] LABS: #Basophils 0.1 thou/uL (0.0-0.2); #Eosinphils 0.2 thou/uL (0.0-0.7); #Monocytes 0.7 thou/uL (0.11-0.59); #Neutrophils 6.2 thou/uL (1.40-6.50); %Basophils 0.5 % (0.0-1.0); %Eosinophils 2.4 % (0.0-10.0); %Lymphocytes 26.3 % (21.0-51.0); %Monocytes 7.1 % (0.0-10.0); %Neutrophils 61.8 % (42.0-75.0); Hemoglobin 13.2 g/dL (14.0-18.0); Mean Corpuscular HGB CONC 34.7 g/dL (32.0-36.0); Mean Corpuscular Hemoglobin 31.7 pg (27.0-31.0); Mean Corpuscular Volume 91.3 fl (78.0-98.0); Mean Platelet Volume 8.4 fL (7.4-10.4); Platelet Count 400 10x3/uL (130-400); RBC Distribution Width 13.3 % (11.5-14.5); Red Blood Cell (RBC) Count 4.16 mill/uL (4.70-6.10)
[2023-11-22 04:17] LABS: ALT (SGPT) Less than 7 U/L (8-55); AST (SGOT) 11 U/L (5-34); Albumin 4.2 g/dL (3.4-4.8); Alkaline Phosphatase 59 U/L (40-110); Anion Gap 13 mmol/L (10-20); BUN (Urea Nitrogen) 14 mg/dL (8.4-25.7); Bilirubin, Total 0.2 mg/dL (0.2-1.2); Calc. Creatinine Clearance 0 mL/min (70-130); Calcium 9.6 mg/dL (7.8-10.44); Carbon Dioxide 27 mmol/L (23-31); Chloride 98 mmol/L (98-107); Estimated GFR 90; Globulin 3.1 g/dL (2.4-3.5); Glucose 125 mg/dL (83-110); Potassium 4.1 mmol/L (3.5-5.1); Protein, Total 7.3 g/dL (5.8-8.1); Sodium 134 mmol/L (136-145)
[2023-11-22 04:18] LABS: Troponin I Less than 0.010 ng/mL (< 0.028)
[2023-11-22] MEDS ORDERED: Nitroglycerin 2% Ointment 1 INCH/1 GM Packet ONE (04:20)
[2023-11-22] MEDS ORDERED: Aspirin Chewable 81 MG TAB ONE (04:53)
[2023-11-22 06:40] VITALS: BMI 27.4
[2023-11-22 06:52] LABS: Troponin I Less than 0.010 ng/mL (< 0.028)
[2023-11-22] MEDS ORDERED: Non-Formulary Item 1 EACH (Polyethylene Glycol 3350 [Miralax] 119 GM Bottle) PO PRN (09:05)
[2023-11-22] MEDS ORDERED: Dextrose 50% Abboject 50 ML SYRINGE SLOW IVP PRN (09:07)
[2023-11-22] MEDS ORDERED: Glucagon 1 MG/ML KIT IM PRN (09:07)
[2023-11-22] MEDS ORDERED: Acetaminophen 325 MG TAB PO PRN (09:07)
[2023-11-22] MEDS ORDERED: Acetaminophen 650 MG Suppository PR PRN (09:07)
[2023-11-22] MEDS ORDERED: Dextrose 5% in Water 1,000 ML IV PRN (09:07)
[2023-11-22] MEDS ORDERED: Insulin Regular 300 UNITS/3 ML VIAL SC PRN ×2 (09:09)
[2023-11-22] MEDS ORDERED: Nitroglycerin 0.4 MG TAB (25 Tab Bottle) SL PRN (09:09)
[2023-11-22] MEDS ORDERED: Polyethylene Glycol 3350 17 GM Packet PO PRN (09:22)
[2023-11-22 09:54] LABS: Troponin I Less than 0.010 ng/mL (< 0.028)
[2023-11-22] MEDS: Carbidopa/Levodopa 25-250 mg Tablet PO SCH ×2 (11:25→14:25)
[2023-11-22] MEDS: Nitroglycerin 2% Ointment 1 INCH/1 GM Packet TOP SCH (11:58)
[2023-11-22] MEDS: hydrALAZINE 20 MG/ML VIAL SLOW IVP SCH (11:58)
[2023-11-22] MEDS ORDERED: LEVODOPA PO SCH (13:30)
[2023-11-22] MEDS ORDERED: CARBIDOPA PO SCH (13:30)
[2023-11-22] MEDS ORDERED: [UNRECOGNIZED DRUG - OTHER] PO SCH (13:30)
[2023-11-22] MEDS: Sodium Chloride 0.9% 500 ML IV SCH (18:39)
[2023-11-22] MEDS: Sertraline 100 MG TAB PO SCH (20:14)
[2023-11-22] MEDS ORDERED: Non-Formulary Item 1 EACH (Sertraline Hcl [Zoloft] 50 MG Tablet) PO SCH (21:00)
[2023-11-23 05:09] LABS: #Basophils 0.1 thou/uL (0.0-0.2); #Eosinphils 0.2 thou/uL (0.0-0.7); #Monocytes 0.7 thou/uL (0.11-0.59); #Neutrophils 5.4 thou/uL (1.40-6.50); %Basophils 0.7 % (0.0-1.0); %Lymphocytes 25.8 % (21.0-51.0); %Monocytes 7.7 % (0.0-10.0); %Neutrophils 62.3 % (42.0-75.0); Hematocrit 34.5 % (42.0-52.0); Hemoglobin 11.6 g/dL (14.0-18.0); Mean Corpuscular HGB CONC 33.6 g/dL (32.0-36.0); Mean Corpuscular Hemoglobin 31.3 pg (27.0-31.0); Mean Platelet Volume 8.2 fL (7.4-10.4); Platelet Count 351 10x3/uL (130-400); RBC Distribution Width 13.7 % (11.5-14.5); Red Blood Cell (RBC) Count 3.71 mill/uL (4.70-6.10); White Blood Cell (WBC) Count 8.7 10x3/uL (4.8-10.8)
[2023-11-23 05:39] LABS: Anion Gap 11 mmol/L (10-20); BUN (Urea Nitrogen) 13 mg/dL (8.4-25.7); Calc. Creatinine Clearance 71 mL/min (70-130); Calcium 9.1 mg/dL (7.8-10.44); Carbon Dioxide 23 mmol/L (23-31); Cardiac Risk 2.6 (Less than 4.5); Chloride 103 mmol/L (98-107); Cholesterol 120 mg/dl (< 200 Desired); Estimated GFR 89; Glucose 122 mg/dL (83-110); HDL Cholesterol 46 mg/dL (>60 Neg Risk); LDL Cholesterol, Calculated 60 mg/dL; Potassium 4.3 mmol/L (3.5-5.1); Sodium 133 mmol/L (136-145); Triglycerides 69 mg/dL (Less than 150)
[2023-11-23] MEDS: Aspirin Chewable 81 MG TAB PO SCH (08:24)
[2023-11-23] MEDS: Donepezil HCl 10 MG TAB PO SCH (08:25)
[2023-11-23] MEDS: Memantine 10 MG TAB PO SCH (08:25)
[2023-11-23] MEDS: Clopidogrel Bisulfate 75 MG TAB PO SCH (08:25)
[2023-11-23] MEDS ORDERED: Regadenoson 0.4 MG/5 ML SYRINGE ONE (08:45)
[2023-11-23] MEDS ORDERED: Non-Formulary Item 1 EACH (Memantine Hcl/Donepezil Hcl [Namzaric 28 Mg-10 Mg Capsule] 1 E PO SCH (09:00)
[2023-11-23] MEDS: Furosemide 20 MG (2 mL) VIAL SLOW IVP SCH (14:14)
[2023-11-23] MEDS: Ipratropium/Albuterol 3 ML NEB NEB SCH (14:27)
[2023-11-23 16:09] VITALS: BP 186/85; TEMP 98.3
== END 2023-11-23 18:08 | disposition home or self-care (01) ==
LOC: ERS 03:17 → ERHOLD 05:40 → 2SW 10:47
PROVIDERS: ADMIT Student in an Organized Health Care Education/Training Program; ATTEND Internal Medicine
DX: R07.89 Other chest pain (principal); I10 Essential (primary) hypertension; E78.5 Hyperlipidemia, unspecified; E11.9 Type 2 diabetes mellitus without complications; G20.A1 Parkinson's disease without dyskinesia, without mention of fluctuations; J98.8 Other specified respiratory disorders; I25.10 Atherosclerotic heart disease of native coronary artery without angina pectoris; Z95.1 Presence of aortocoronary bypass graft; Z79.84 Long term (current) use of oral hypoglycemic drugs; Z79.899 Other long term (current) drug therapy
CPT/HCPCS: 71045; 78452; 80048; 80053; 80061; 82962 ×2; 83880; 84484 ×2; 85025 ×2; 93005; 93017; 94640; 94760; 96374; 96375; 99285; A9502; G0378 ×3; J0360; J2785; 36415; 36416; 93010; J1940; J7030; J7620

== ENCOUNTER 2024-01-29 17:13 | Inpatient (IN) | payer OTHER, MEDICARE ==
[~2024-01-29 17:13] MED LIST: Iopamidol-370 76% 500 ML MDV (1 ML CHARGE) ONE
[2024-01-29] MEDS ORDERED: Acetaminophen 500 MG TAB ONE (18:24)
[2024-01-29 19:54] LABS: #Basophils 0.03 10x3/uL (0.0-0.2); %Basophils 0.3 % (0.0-1.0); %Eosinophils 1.5 % (0.0-10.0); %Lymphocytes 18.5 % (21.0-51.0); %Monocytes 6.7 % (0.0-10.0); %Neutrophils 72.7 % (42.0-75.0); Hematocrit 37.7 % (42.0-52.0); Hemoglobin 13.1 g/dL (14.0-18.0); Mean Corpuscular HGB CONC 34.7 g/dL (32.0-36.0); Mean Corpuscular Hemoglobin 31.6 pg (27.0-31.0); Mean Corpuscular Volume 90.8 fL (78.0-98.0); Mean Platelet Volume 8.8 fL (7.4-10.4); Platelet Count 249 10x3/uL (130-400); RBC Distribution Width 13.8 % (11.5-14.5); Red Blood Cell (RBC) Count 4.15 mill/uL (4.70-6.10)
[2024-01-29 20:08] LABS: PTT 28.3 sec (22.9-36.1); Prothrombin Time 12.9 sec (12.0-14.7)
[2024-01-29 20:09] LABS: Globulin 2.7 g/dL (2.4-3.5)
[2024-01-29] MEDS ORDERED: Lisinopril 20 MG TAB ONE (20:11)
[2024-01-29] MEDS ORDERED: Lisinopril 10 MG TAB ONE (20:12)
[2024-01-29 20:13] LABS: ALT (SGPT) 5 U/L (8-55); AST (SGOT) 13 U/L (5-34); Albumin 3.9 g/dL (3.4-4.8); Alkaline Phosphatase 64 U/L (40-110); Anion Gap 15 mmol/L (10-20); BUN (Urea Nitrogen) 15 mg/dL (8.4-25.7); Bilirubin, Total 0.4 mg/dL (0.2-1.2); Calc. Creatinine Clearance 0 mL/min (70-130); Calcium 9.2 mg/dL (7.8-10.44); Carbon Dioxide 20 mmol/L (23-31); Chloride 97 mmol/L (98-107); Estimated GFR 90; Glucose 121 mg/dL (83-110); Magnesium 1.9 mg/dL (1.6-2.6); Protein, Total 6.6 g/dL (5.8-8.1); Sodium 128 mmol/L (136-145)
[2024-01-29 20:18] LABS: Troponin I Less than 0.010 ng/mL (< 0.028)
[2024-01-29 20:34] LABS: Bacteria/HPF None Seen HPF (None Seen); Bilirubin Negative (Negative); Blood, Urine Negative (Negative); CAUTI Indications for Culture Dysuria,urgency,freq; Clarity Clear (Clear); Glucose, Urine (Dipstick) Normal (Negative); Ketone, Urine Negative (Negative); Leukocyte Negative Leu/uL (Negative); Nitrite Negative (Negative); Protein, Urine (Dipstick) Negative (Neg-Trace); RBC/HPF 0-3 HPF (0-3); Specific Gravity, Urine 1.008 (1.002-1.036); Squamous Epithelial 0-3 HPF (0-3); Urobilinogen Normal mg/dL (Less than 2); WBC/HPF None Seen HPF (0-3); pH, Urine 6.5 (5.0-9.0)
[2024-01-29 20:36] LABS: Urine Culture Reflex No No
[2024-01-29] MEDS ORDERED: hydrALAZINE 20 MG/ML VIAL ONE (21:05)
[2024-01-29] MEDS ORDERED: Acetaminophen 650 MG Suppository PR PRN (22:35)
[2024-01-29] MEDS ORDERED: Senokot S 8.6-50 MG TAB PO PRN (22:35)
[2024-01-29] MEDS ORDERED: Acetaminophen 325 MG TAB PO PRN ×2 (22:35→22:48)
[2024-01-29] MEDS ORDERED: Ondansetron ODT 4 MG TAB PO PRN (22:35)
[2024-01-29] MEDS ORDERED: Bisacodyl 5 MG TAB PO PRN (22:35)
[2024-01-29] MEDS ORDERED: Ondansetron PF 4 MG/2 ML Vial IVP PRN (22:35)
[2024-01-29] MEDS ORDERED: Polyethylene Glycol 3350 17 GM Packet PO PRN (22:50)
[2024-01-30 04:46] VITALS: BMI 21.1
[2024-01-30] MEDS ORDERED: Aspirin 81 mg Enteric Coated Tablet ONE (07:43)
[2024-01-30] MEDS ORDERED: Memantine 10 MG TAB ONE (07:43)
[2024-01-30] MEDS: Aspirin 81 mg Enteric Coated Tablet PO SCH (08:40)
[2024-01-30] MEDS: Memantine 10 MG TAB PO SCH (08:40)
[2024-01-30] MEDS: Mirabegron ER 25 MG ER.TAB PO SCH (09:33)
[2024-01-30] MEDS: Carbidopa/Levodopa 25-250 mg Tablet PO SCH (09:33)
[2024-01-30] MEDS: Ascorbic Acid 500 mg Chewable Tablet PO SCH (09:33)
[2024-01-30] MEDS: Zinc Sulfate 220 MG CAP PO SCH (09:33)
[2024-01-30] MEDS: Metamucil PACK PO SCH (09:33)
[2024-01-30 11:07] LABS: #Basophils 0.03 10x3/uL (0.0-0.2); %Basophils 0.4 % (0.0-1.0); %Eosinophils 0.8 % (0.0-10.0); %Lymphocytes 16.6 % (21.0-51.0); %Monocytes 6.2 % (0.0-10.0); %Neutrophils 75.7 % (42.0-75.0); Hematocrit 39.6 % (42.0-52.0); Hemoglobin 13.8 g/dL (14.0-18.0); Mean Corpuscular HGB CONC 34.8 g/dL (32.0-36.0); Mean Corpuscular Hemoglobin 31.7 pg (27.0-31.0); Mean Corpuscular Volume 90.8 fL (78.0-98.0); Mean Platelet Volume 8.8 fL (7.4-10.4); Platelet Count 259 10x3/uL (130-400); Red Blood Cell (RBC) Count 4.36 mill/uL (4.70-6.10)
[2024-01-30 11:35] LABS: Chloride 104 mmol/L (98-107); Potassium 4.1 mmol/L (3.5-5.1); Sodium 136 mmol/L (136-145)
[2024-01-30 11:36] LABS: Calcium 9.2 mg/dL (7.8-10.44); Glucose 183 mg/dL (83-110)
[2024-01-30 11:37] LABS: Triglycerides 80 mg/dL (Less than 150)
[2024-01-30 11:38] LABS: Anion Gap 14 mmol/L (10-20); Carbon Dioxide 22 mmol/L (23-31)
[2024-01-30 11:40] LABS: BUN (Urea Nitrogen) 13 mg/dL (8.4-25.7); Calc. Creatinine Clearance 68 mL/min (70-130); Estimated GFR 91
[2024-01-30 11:42] LABS: Cardiac Risk 2.7 (Less than 4.5); Cholesterol 142 mg/dl (< 200 Desired); HDL Cholesterol 53 mg/dL (>60 Neg Risk); Hemoglobin A1c 6.3 % (4.0-6.0); LDL Cholesterol, Calculated 73 mg/dL
[2024-01-30] MEDS ORDERED: Atorvastatin Calcium 40 MG TAB PO SCH (21:00)
[2024-01-30] MEDS: Donepezil HCl 10 MG TAB PO SCH (21:15)
[2024-01-30] MEDS: Sertraline 100 MG TAB PO SCH (21:15)
[2024-01-31 04:56] LABS: Anion Gap 13 mmol/L (10-20); BUN (Urea Nitrogen) 15 mg/dL (8.4-25.7); Calc. Creatinine Clearance 66 mL/min (70-130); Calcium 9.1 mg/dL (7.8-10.44); Carbon Dioxide 22 mmol/L (23-31); Chloride 103 mmol/L (98-107); Estimated GFR 91; Glucose 131 mg/dL (83-110); Potassium 4.1 mmol/L (3.5-5.1); Sodium 134 mmol/L (136-145)
[2024-01-31] MEDS: Clopidogrel Bisulfate 75 MG TAB PO SCH (09:28)
[2024-01-31] MEDS ORDERED: Polyethylene Glycol 3350 17 GM Packet PO PRN (11:30)
[2024-01-31 11:34] VITALS: TEMP 98.1
[2024-01-31 16:09] VITALS: BP 164/83
== END 2024-01-31 16:20 | disposition home or self-care (01) | DRG 68 ==
LOC: ERS 17:13 → ERHOLD 22:44 → 2SE 01-30 15:04 → OBSVTOIN 01-30 18:01
PROVIDERS: ADMIT Internal Medicine; ATTEND Internal Medicine
PROC: 4A00X4Z Measurement of Central Nervous Electrical Activity, External Approach (ICD-10-PCS; principal; 2024-01-31)
DX: I65.21 Occlusion and stenosis of right carotid artery (principal); E87.1 Hypo-osmolality and hyponatremia; I65.01 Occlusion and stenosis of right vertebral artery; S00.03XA Contusion of scalp, initial encounter; W18.30XA Fall on same level, unspecified, initial encounter; G20.A1 Parkinson's disease without dyskinesia, without mention of fluctuations; F02.80 Dementia in other diseases classified elsewhere, unspecified severity, without behavioral disturbance, psychotic disturbance, mood disturbance, and anxiety; I10 Essential (primary) hypertension; I25.10 Atherosclerotic heart disease of native coronary artery without angina pectoris; Z66 Do not resuscitate; Z79.84 Long term (current) use of oral hypoglycemic drugs; Z79.899 Other long term (current) drug therapy; Z98.890 Other specified postprocedural states; F41.9 Anxiety disorder, unspecified; F32.A Depression, unspecified
CPT/HCPCS: 36415; 70450; 70496; 70498; 70551; 71045; 72125; 80048; 80053; 80061; 81001; 83036; 83735; 83880; 83930; 83935; 84300; 84443; 84484; 85025; 85610; 85730; 93005; 93306; 95700; 95711; 95819; G0378; J0360; Q9967

== ENCOUNTER 2024-07-12 00:14 | Inpatient (IN) | payer MEDICARE, OTHER ==
[2024-07-12] MEDS ORDERED: Nitroglycerin 2% Ointment 1 INCH/1 GM Packet ONE (00:55)
[2024-07-12 01:05] LABS: #Basophils 0.04 10x3/uL (0.0-0.2); %Basophils 0.5 % (0.0-1.0); %Eosinophils 2.6 % (0.0-10.0); %Lymphocytes 25.5 % (21.0-51.0); %Monocytes 6.8 % (0.0-10.0); %Neutrophils 64.3 % (42.0-75.0); Hematocrit 37.8 % (42.0-52.0); Mean Corpuscular HGB CONC 34.4 g/dL (32.0-36.0); Mean Corpuscular Hemoglobin 32.3 pg (27.0-31.0); Mean Platelet Volume 8.8 fL (7.4-10.4); Platelet Count 223 10x3/uL (130-400); RBC Distribution Width 13.2 % (11.5-14.5); Red Blood Cell (RBC) Count 4.02 mill/uL (4.70-6.10)
[2024-07-12 01:22] LABS: ALT (SGPT) Less than 5 U/L (8-55); AST (SGOT) 14 U/L (5-34); Albumin 3.9 g/dL (3.4-4.8); Alkaline Phosphatase 60 U/L (40-110); Anion Gap 15 mmol/L (10-20); BUN (Urea Nitrogen) 16 mg/dL (8.4-25.7); Bilirubin, Total 0.3 mg/dL (0.2-1.2); Calc. Creatinine Clearance 0 mL/min (70-130); Carbon Dioxide 20 mmol/L (23-31); Chloride 101 mmol/L (98-107); Estimated GFR 90; Globulin 2.7 g/dL (2.4-3.5); Glucose 117 mg/dL (83-110); Potassium 3.7 mmol/L (3.5-5.1); Protein, Total 6.6 g/dL (5.8-8.1); Sodium 132 mmol/L (136-145)
[2024-07-12 01:28] LABS: Troponin I Less than 0.010 ng/mL (< 0.028)
[2024-07-12] MEDS ORDERED: Ondansetron PF 4 MG/2 ML Vial IVP PRN (02:22)
[2024-07-12] MEDS ORDERED: Acetaminophen 325 MG TAB PO PRN ×2 (02:22→10:25)
[2024-07-12] MEDS ORDERED: Insulin Lispro 100 UNIT/ML 10 ML VIAL SC PRN ×2 (02:26)
[2024-07-12] MEDS ORDERED: Glucagon 1 MG/ML KIT IM PRN (02:26)
[2024-07-12] MEDS ORDERED: Dextrose 5% in Water 1,000 ML IV PRN (02:26)
[2024-07-12] MEDS ORDERED: Dextrose 50% Abboject 50 ML SYRINGE SLOW IVP PRN (02:26)
[2024-07-12 03:15] VITALS: BMI 23.2
[2024-07-12 05:08] LABS: #Basophils 0.04 10x3/uL (0.0-0.2); %Basophils 0.5 % (0.0-1.0); %Eosinophils 2.2 % (0.0-10.0); %Lymphocytes 29.8 % (21.0-51.0); %Monocytes 6.3 % (0.0-10.0); %Neutrophils 60.8 % (42.0-75.0); Hematocrit 36.9 % (42.0-52.0); Hemoglobin 12.8 g/dL (14.0-18.0); Mean Corpuscular HGB CONC 34.7 g/dL (32.0-36.0); Mean Corpuscular Hemoglobin 32.1 pg (27.0-31.0); Mean Corpuscular Volume 92.5 fL (78.0-98.0); Mean Platelet Volume 8.9 fL (7.4-10.4); Platelet Count 225 10x3/uL (130-400); RBC Distribution Width 13.2 % (11.5-14.5); Red Blood Cell (RBC) Count 3.99 mill/uL (4.70-6.10)
[2024-07-12 05:41] LABS: Anion Gap 12 mmol/L (10-20); BUN (Urea Nitrogen) 15 mg/dL (8.4-25.7); Calc. Creatinine Clearance 66 mL/min (70-130); Carbon Dioxide 26 mmol/L (23-31); Chloride 98 mmol/L (98-107); Estimated GFR 91; Glucose 125 mg/dL (83-110); Potassium 3.8 mmol/L (3.5-5.1); Sodium 132 mmol/L (136-145)
[2024-07-12 05:45] LABS: Troponin I Less than 0.010 ng/mL (< 0.028)
[2024-07-12 08:00] LABS: Troponin I Less than 0.010 ng/mL (< 0.028)
[2024-07-12] MEDS: FLU (Fluad Triv) TS24-25 (65UP)/MF59C/PF 45 MCG/0.5 ML Syringe IM ONE (09:17)
[2024-07-12] MEDS: Enoxaparin 40 MG (0.4 mL) SYRINGE SC SCH (09:18)
[2024-07-12] MEDS ORDERED: Albuterol 1.25 MG (3 mL) NEB EZPAP PRN (10:06)
[2024-07-12] MEDS ORDERED: hydrALAZINE 20 MG/ML VIAL SLOW IVP PRN ×2 (10:08→14:58)
[2024-07-12] MEDS ORDERED: Polyethylene Glycol 3350 17 GM Packet PO PRN (10:23)
[2024-07-12] MEDS ORDERED: Betamethasone Val 0.1% Lotion 60 ML BOT TOP PRN (10:29)
[2024-07-12] MEDS: NIFEdipine XL 30 MG ER.TAB PO SCH ×2 (11:01→20:59)
[2024-07-12] MEDS: Lisinopril 5 MG TAB PO SCH ×2 (11:01→20:59)
[2024-07-12] MEDS: Metoprolol Tartrate 25 MG TAB PO SCH ×2 (12:01→21:00)
[2024-07-12] MEDS: metFORMIN 500 MG TAB PO SCH (15:20)
[2024-07-12] MEDS: Carbidopa/Levodopa 25-250 mg Tablet PO SCH (15:20)
[2024-07-12] MEDS: Trospium 20 MG TAB PO SCH (20:59)
[2024-07-12] MEDS: Sertraline 100 MG TAB PO SCH (20:59)
[2024-07-12] MEDS: Donepezil HCl 10 MG TAB PO SCH (20:59)
[2024-07-13 05:16] LABS: #Basophils 0.07 10x3/uL (0.0-0.2); %Basophils 0.9 % (0.0-1.0); %Eosinophils 3.1 % (0.0-10.0); %Lymphocytes 34.3 % (21.0-51.0); %Monocytes 7.9 % (0.0-10.0); %Neutrophils 53.3 % (42.0-75.0); Hematocrit 39.4 % (42.0-52.0); Hemoglobin 13.2 g/dL (14.0-18.0); Mean Corpuscular HGB CONC 33.5 g/dL (32.0-36.0); Mean Corpuscular Volume 95.4 fL (78.0-98.0); Platelet Count 224 10x3/uL (130-400); RBC Distribution Width 13.2 % (11.5-14.5); Red Blood Cell (RBC) Count 4.13 mill/uL (4.70-6.10)
[2024-07-13 05:38] LABS: Anion Gap 11 mmol/L (10-20); BUN (Urea Nitrogen) 12 mg/dL (8.4-25.7); Calc. Creatinine Clearance 72 mL/min (70-130); Calcium 8.6 mg/dL (7.8-10.44); Carbon Dioxide 24 mmol/L (23-31); Cardiac Risk 1.6 (Less than 4.5); Chloride 101 mmol/L (98-107); Cholesterol 78 mg/dl (< 200 Desired); Estimated GFR 94; Glucose 117 mg/dL (83-110); HDL Cholesterol 48 mg/dL (>60 Neg Risk); LDL Cholesterol, Calculated 17 mg/dL; Potassium 3.9 mmol/L (3.5-5.1); Sodium 132 mmol/L (136-145); Triglycerides 67 mg/dL (Less than 150)
[2024-07-13] MEDS ORDERED: Bempedoic Acid [Nexletol] 180 MG Tablet PO SCH (09:00)
[2024-07-13] MEDS ORDERED: NIFEdipine XL 30 MG ER.TAB PO SCH (09:00)
[2024-07-13] MEDS: Mirabegron ER 25 MG ER.TAB PO SCH (09:34)
[2024-07-13] MEDS: NIFEdipine XL 30 MG ER.TAB PO SCH (09:34)
[2024-07-13] MEDS: Memantine 10 MG TAB PO SCH (09:34)
[2024-07-13] MEDS: Zinc Sulfate 220 MG CAP PO SCH (09:34)
[2024-07-13] MEDS: Clopidogrel Bisulfate 75 MG TAB PO SCH (09:34)
[2024-07-13] MEDS: Ascorbic Acid 500 mg Chewable Tablet PO SCH (09:34)
[2024-07-13] MEDS: Icosapent Ethyl 1 GM CAPSULE PO SCH (09:34)
[2024-07-13] MEDS: Cyanocobalamin (Vitamin B-12) 1,000 MCG TAB PO SCH (09:35)
[2024-07-13] MEDS: Ferrous Sulfate 325 MG TAB PO SCH (09:35)
[2024-07-13] MEDS: Aspirin 81 mg Enteric Coated Tablet PO SCH (09:35)
[2024-07-13] MEDS: Ergocalciferol 1.25 MG(50,000 UNITS) CAP PO SCH (09:36)
[2024-07-13] MEDS: Sodium Chloride 0.9% 500 ML IV SCH (12:30)
[2024-07-13 14:07] VITALS: BMI 23.2
[2024-07-14 04:41] LABS: #Basophils 0.05 10x3/uL (0.0-0.2); %Basophils 0.6 % (0.0-1.0); %Eosinophils 2.4 % (0.0-10.0); %Lymphocytes 31.5 % (21.0-51.0); %Monocytes 6.5 % (0.0-10.0); %Neutrophils 58.4 % (42.0-75.0); Hematocrit 38.1 % (42.0-52.0); Hemoglobin 12.8 g/dL (14.0-18.0); Mean Corpuscular HGB CONC 33.6 g/dL (32.0-36.0); Mean Corpuscular Hemoglobin 32.2 pg (27.0-31.0); Mean Corpuscular Volume 95.7 fL (78.0-98.0); Platelet Count 232 10x3/uL (130-400); RBC Distribution Width 13.2 % (11.5-14.5); Red Blood Cell (RBC) Count 3.98 mill/uL (4.70-6.10)
[2024-07-14 05:20] LABS: Anion Gap 12 mmol/L (10-20); BUN (Urea Nitrogen) 17 mg/dL (8.4-25.7); Calc. Creatinine Clearance 60 mL/min (70-130); Calcium 8.4 mg/dL (7.8-10.44); Carbon Dioxide 22 mmol/L (23-31); Chloride 102 mmol/L (98-107); Estimated GFR 89; Glucose 123 mg/dL (83-110); Potassium 4.1 mmol/L (3.5-5.1); Sodium 132 mmol/L (136-145)
[2024-07-14] MEDS: Lisinopril 5 MG TAB PO SCH (08:51)
[2024-07-14 12:02] VITALS: BP 164/71; TEMP 97.4
== END 2024-07-14 12:56 | disposition home or self-care (01) | DRG 313 ==
LOC: ERS 00:14 → OBS 01:59 → OBSVTOIN 07-13 16:06
PROVIDERS: ADMIT Internal Medicine; ATTEND Internal Medicine
DX: R07.89 Other chest pain (principal); I50.32 Chronic diastolic (congestive) heart failure; E87.1 Hypo-osmolality and hyponatremia; I95.1 Orthostatic hypotension; E11.9 Type 2 diabetes mellitus without complications; I16.0 Hypertensive urgency; I25.10 Atherosclerotic heart disease of native coronary artery without angina pectoris; I11.0 Hypertensive heart disease with heart failure; E78.5 Hyperlipidemia, unspecified; D64.9 Anemia, unspecified; G20.A1 Parkinson's disease without dyskinesia, without mention of fluctuations; F41.9 Anxiety disorder, unspecified; F32.A Depression, unspecified; Z95.1 Presence of aortocoronary bypass graft; Z98.890 Other specified postprocedural states; Z79.82 Long term (current) use of aspirin; Z79.899 Other long term (current) drug therapy; Z79.84 Long term (current) use of oral hypoglycemic drugs; Z87.891 Personal history of nicotine dependence
CPT/HCPCS: 36415; 36416; 71045; 80048; 80053; 80061; 83880; 84484; 85025; 93005; 93306; 96372; G0378; J1650

== ENCOUNTER 2025-05-04 19:30 | Inpatient (IN) | payer MEDICARE, OTHER ==
[2025-05-04] MEDS ORDERED: hydrALAZINE 20 MG/ML VIAL ONE ×2 (20:04→21:27)
[2025-05-04 20:15] LABS: #Basophils 0.05 10x3/uL (0.0-0.2); #Eosinophils 0.21 10x3/uL (0.0-0.7); #Monocytes 0.54 10x3/uL (0.11-0.59); #Neutrophils 5.40 10x3/uL (1.40-6.50); %Basophils 0.6 % (0.0-1.0); %Eosinophils 2.6 % (0.0-10.0); %Lymphocytes 23.8 % (21.0-51.0); %Monocytes 6.6 % (0.0-10.0); %Neutrophils 65.9 % (42.0-75.0); Hematocrit 38.2 % (42.0-52.0); Hemoglobin 12.5 g/dL (14.0-18.0); Mean Corpuscular Hemoglobin 30.0 pg (27.0-31.0); Mean Corpuscular Volume 91.8 fL (78.0-98.0); Platelet Count 233 10x3/uL (130-400); Red Blood Cell (RBC) Count 4.16 mill/uL (4.70-6.10); White Blood Cell (WBC) Count 8.19 10x3/uL (4.8-10.8)
[2025-05-04 20:31] LABS: Acetaminophen Less than 10 mcg/mL (Less than 10); Salicylate Less than 8.0 mg/dL (Less than 8.0)
[2025-05-04 20:35] LABS: ALT (SGPT) Less than 7 U/L (Less than 45); AST (SGOT) 17 U/L (11-34); Albumin 4.0 g/dL (3.1-4.5); Alkaline Phosphatase 83 U/L (40-110); Anion Gap 11 mmol/L (10-20); BUN (Urea Nitrogen) 16 mg/dL (8.4-25.7); Bilirubin, Total 0.5 mg/dL (0.3-1.2); Calc. Creatinine Clearance 0 mL/min (70-130); Calcium 8.6 mg/dL (7.8-10.44); Carbon Dioxide 27 mmol/L (23-31); Chloride 101 mmol/L (98-107); Globulin 2.3 g/dL (2.4-3.5); Glucose 153 mg/dL (83-110); Potassium 3.4 mmol/L (3.5-5.1); Sodium 136 mmol/L (136-145)
[2025-05-04 20:52] LABS: INR-International Normal Ratio 1.0; Prothrombin Time 13.7 sec (12.0-14.7)
[2025-05-04 20:53] LABS: PTT 28.7 sec (22.9-36.1)
[2025-05-04] MEDS ORDERED: Acetaminophen 325 MG TAB PO PRN (23:15)
[2025-05-04] MEDS ORDERED: Rib Fracture Protocol PO SCH (23:15)
[2025-05-04] MEDS ORDERED: Dextrose 50% Abboject 50 ML SYRINGE SLOW IVP PRN (23:15)
[2025-05-04] MEDS ORDERED: Glucagon 1 MG/ML KIT IM PRN (23:15)
[2025-05-05 02:22] VITALS: BMI 21.4
[2025-05-05] MEDS: Acetaminophen 500 MG TAB PO SCH (05:48)
[2025-05-05] MEDS: Ibuprofen 600 MG TAB PO SCH (05:50)
[2025-05-05 06:31] LABS: #Basophils 0.03 10x3/uL (0.0-0.2); #Eosinophils Less than 0.03 10x3/uL (0.0-0.7); #Monocytes 0.44 10x3/uL (0.11-0.59); #Neutrophils 10.03 10x3/uL (1.40-6.50); %Basophils 0.3 % (0.0-1.0); %Eosinophils 0.1 % (0.0-10.0); %Lymphocytes 10.5 % (21.0-51.0); %Monocytes 3.7 % (0.0-10.0); %Neutrophils 85.1 % (42.0-75.0); Hematocrit 38.7 % (42.0-52.0); Hemoglobin 13.0 g/dL (14.0-18.0); Mean Corpuscular Hemoglobin 31.0 pg (27.0-31.0); Mean Corpuscular Volume 92.4 fL (78.0-98.0); Platelet Count 236 10x3/uL (130-400); Red Blood Cell (RBC) Count 4.19 mill/uL (4.70-6.10); White Blood Cell (WBC) Count 11.78 10x3/uL (4.8-10.8)
[2025-05-05 06:50] LABS: Anion Gap 15 mmol/L (10-20); BUN (Urea Nitrogen) 17 mg/dL (8.4-25.7); Calc. Creatinine Clearance 74 mL/min (70-130); Calcium 8.8 mg/dL (7.8-10.44); Carbon Dioxide 23 mmol/L (23-31); Chloride 103 mmol/L (98-107); Glucose 176 mg/dL (83-110); Potassium 3.7 mmol/L (3.5-5.1); Sodium 137 mmol/L (136-145)
[2025-05-05] MEDS: Gabapentin 100 MG CAP PO SCH (08:17)
[2025-05-05] MEDS ORDERED: CARBIDOPA PO SCH (09:28)
[2025-05-05] MEDS ORDERED: Lisinopril 5 MG TAB PO PRN (09:28)
[2025-05-05] MEDS ORDERED: [UNRECOGNIZED DRUG - OTHER] PO SCH (09:28)
[2025-05-05] MEDS ORDERED: LEVODOPA PO SCH (09:28)
[2025-05-05] MEDS: Sertraline 100 MG TAB PO SCH (10:04)
[2025-05-05] MEDS: Pantoprazole 40 MG DR.TAB PO SCH (10:05)
[2025-05-05] MEDS: Non-Formulary Item 1 EACH (Sertraline Hcl [Zoloft] 50 MG Tablet) PO SCH (10:07)
[2025-05-06 08:36] LABS: #Basophils 0.05 10x3/uL (0.0-0.2); #Eosinophils 0.26 10x3/uL (0.0-0.7); #Monocytes 0.71 10x3/uL (0.11-0.59); #Neutrophils 5.58 10x3/uL (1.40-6.50); %Basophils 0.5 % (0.0-1.0); %Eosinophils 2.7 % (0.0-10.0); %Lymphocytes 32.2 % (21.0-51.0); %Monocytes 7.3 % (0.0-10.0); %Neutrophils 57.0 % (42.0-75.0); Hematocrit 37.4 % (42.0-52.0); Hemoglobin 12.4 g/dL (14.0-18.0); Mean Corpuscular Hemoglobin 30.9 pg (27.0-31.0); Mean Corpuscular Volume 93.3 fL (78.0-98.0); Platelet Count 217 10x3/uL (130-400); Red Blood Cell (RBC) Count 4.01 mill/uL (4.70-6.10); White Blood Cell (WBC) Count 9.78 10x3/uL (4.8-10.8)
[2025-05-06] MEDS: Aspirin 81 mg Enteric Coated Tablet PO SCH (09:31)
[2025-05-06] MEDS: Senokot S 8.6-50 MG TAB PO SCH (09:33)
[2025-05-06] MEDS: Cyclobenzaprine 10 MG TAB PO PRN (09:38)
[2025-05-07 10:00] LABS: #Basophils 0.04 10x3/uL (0.0-0.2); #Eosinophils 0.28 10x3/uL (0.0-0.7); #Monocytes 0.49 10x3/uL (0.11-0.59); #Neutrophils 7.97 10x3/uL (1.40-6.50); %Basophils 0.4 % (0.0-1.0); %Eosinophils 2.9 % (0.0-10.0); %Lymphocytes 9.6 % (21.0-51.0); %Monocytes 5.0 % (0.0-10.0); %Neutrophils 81.8 % (42.0-75.0); Hematocrit 40.9 % (42.0-52.0); Hemoglobin 13.4 g/dL (14.0-18.0); Mean Corpuscular Hemoglobin 30.8 pg (27.0-31.0); Mean Corpuscular Volume 94.0 fL (78.0-98.0); Platelet Count 215 10x3/uL (130-400); Red Blood Cell (RBC) Count 4.35 mill/uL (4.70-6.10); White Blood Cell (WBC) Count 9.75 10x3/uL (4.8-10.8)
[2025-05-07 10:25] LABS: Anion Gap 12 mmol/L (10-20); BUN (Urea Nitrogen) 17 mg/dL (8.4-25.7); Calc. Creatinine Clearance 76 mL/min (70-130); Calcium 8.5 mg/dL (7.8-10.44); Carbon Dioxide 23 mmol/L (23-31); Chloride 105 mmol/L (98-107); Glucose 136 mg/dL (83-110); Potassium 3.3 mmol/L (3.5-5.1); Sodium 137 mmol/L (136-145)
[2025-05-07] MEDS: Lidocaine 4% Topical Sol 50 ML BOT TOP SCH (13:04)
[2025-05-08] MEDS: hydrALAZINE 20 MG/ML VIAL SLOW IVP PRN (00:08)
[2025-05-08 11:22] VITALS: BP 153/57; TEMP 97.8
== END 2025-05-08 15:44 | DRG 184 ==
LOC: ERS 19:30 → SURG B 23:03 → OBSVTOIN 05-05 16:38
PROVIDERS: ADMIT Surgery; ATTEND Surgery
DX: S22.41XA Multiple fractures of ribs, right side, initial encounter for closed fracture (principal); I50.32 Chronic diastolic (congestive) heart failure; I16.0 Hypertensive urgency; E78.5 Hyperlipidemia, unspecified; I10 Essential (primary) hypertension; E11.9 Type 2 diabetes mellitus without complications; G20.A1 Parkinson's disease without dyskinesia, without mention of fluctuations; F02.80 Dementia in other diseases classified elsewhere, unspecified severity, without behavioral disturbance, psychotic disturbance, mood disturbance, and anxiety; I25.10 Atherosclerotic heart disease of native coronary artery without angina pectoris; Z98.890 Other specified postprocedural states; Z95.1 Presence of aortocoronary bypass graft; Z79.899 Other long term (current) drug therapy; Z79.84 Long term (current) use of oral hypoglycemic drugs
CPT/HCPCS: 36415; 36416; 70450; 71045; 71260; 72125; 72170; 74177; 80048; 80053; 80307; 84484; 85025; 85610; 85730; 94640; 96374; 96375; 96376; G0378; G0390; J0360; J2060; J2270; J3010; J7030; J7620; Q9967

== ENCOUNTER 2025-06-25 09:33 | Emergency (ER) | payer MEDICARE, OTHER | END 2025-06-25 11:53 | disposition home or self-care (01) | LOC: ERS 09:33 | DX: S09.90XA Unspecified injury of head, initial encounter (principal); E11.9 Type 2 diabetes mellitus without complications; W01.198A Fall on same level from slipping, tripping and stumbling with subsequent striking against other object, initial encounter; Z79.84 Long term (current) use of oral hypoglycemic drugs; Z87.891 Personal history of nicotine dependence | CPT/HCPCS: 70450; 71045; 72125; 72170 ==

== ENCOUNTER 2025-07-12 05:20 | Emergency (ER) | payer MEDICARE, OTHER ==
[2025-07-12 06:20] LABS: #Basophils 0.06 10x3/uL (0.0-0.2); #Eosinophils 0.22 10x3/uL (0.0-0.7); #Monocytes 0.64 10x3/uL (0.11-0.59); #Neutrophils 6.16 10x3/uL (1.40-6.50); %Basophils 0.6 % (0.0-1.0); %Eosinophils 2.3 % (0.0-10.0); %Lymphocytes 24.9 % (21.0-51.0); %Monocytes 6.7 % (0.0-10.0); %Neutrophils 65.0 % (42.0-75.0); Hematocrit 40.1 % (42.0-52.0); Hemoglobin 13.0 g/dL (14.0-18.0); Mean Corpuscular Hemoglobin 30.4 pg (27.0-31.0); Mean Corpuscular Volume 93.9 fL (78.0-98.0); Platelet Count 246 10x3/uL (130-400); Red Blood Cell (RBC) Count 4.27 mill/uL (4.70-6.10); White Blood Cell (WBC) Count 9.50 10x3/uL (4.8-10.8)
[2025-07-12 07:03] LABS: ALT (SGPT) 19 U/L (Less than 45); AST (SGOT) 37 U/L (11-34); Albumin 3.7 g/dL (3.1-4.5); Alkaline Phosphatase 86 U/L (40-110); Anion Gap 12 mmol/L (10-20); BUN (Urea Nitrogen) 20 mg/dL (8.4-25.7); Bilirubin, Total 0.5 mg/dL (0.3-1.2); Calc. Creatinine Clearance 0 mL/min (70-130); Calcium 8.6 mg/dL (7.8-10.44); Carbon Dioxide 24 mmol/L (23-31); Chloride 107 mmol/L (98-107); Globulin 2.5 g/dL (2.4-3.5); Glucose 143 mg/dL (83-110); Lipase 37 U/L (8-78); Magnesium 1.6 mg/dL (1.6-2.6); Potassium 3.5 mmol/L (3.5-5.1); Sodium 139 mmol/L (136-145)
== END 2025-07-12 09:50 | disposition home or self-care (01) ==
LOC: ERS 05:20
DX: S01.01XA Laceration without foreign body of scalp, initial encounter (principal); G20.A1 Parkinson's disease without dyskinesia, without mention of fluctuations; E11.9 Type 2 diabetes mellitus without complications; Z87.891 Personal history of nicotine dependence; W19.XXXA Unspecified fall, initial encounter
CPT/HCPCS: 70450; 71045; 72125; 80053; 83690; 83735; 84484; 85025; 85379; 93005

== ENCOUNTER 2025-08-06 13:17 | Emergency (ER) | payer MEDICARE, OTHER | END 2025-08-06 17:10 | disposition home or self-care (01) | LOC: ERS 13:17 | DX: S09.90XA Unspecified injury of head, initial encounter (principal); E11.9 Type 2 diabetes mellitus without complications; Z87.891 Personal history of nicotine dependence; Z79.82 Long term (current) use of aspirin; Z79.84 Long term (current) use of oral hypoglycemic drugs; W01.0XXA Fall on same level from slipping, tripping and stumbling without subsequent striking against object, initial encounter | CPT/HCPCS: 70450; 72125 ==

== ENCOUNTER 2025-08-24 13:30 | Emergency (ER) | payer MEDICARE, OTHER | END 2025-08-24 16:51 | disposition home or self-care (01) | LOC: ERS 13:30 | DX: S00.03XA Contusion of scalp, initial encounter (principal); E11.9 Type 2 diabetes mellitus without complications; G20.A1 Parkinson's disease without dyskinesia, without mention of fluctuations; W05.0XXA Fall from non-moving wheelchair, initial encounter; Z79.84 Long term (current) use of oral hypoglycemic drugs; Z79.899 Other long term (current) drug therapy | CPT/HCPCS: 70450 ==